=== PATIENT | male | born 1980 | race Caucasian/White ===

== ENCOUNTER 2016-09-09 18:32 | Emergency (ER) | payer OTHER ==
[2016-09-09 18:47] VITALS: BP 124/80; PULSE 86; TEMP 98.6; BMI 29.0
[2016-09-09] MEDS ORDERED: CLINDAMYCIN 600MG PREMIX IVPB 50 ML IVPB ONE (19:28)
[2016-09-09] MEDS ORDERED: OXYCODONE/APAP 5/325MG COMBO TABLET PO ONE (19:28)
[2016-09-09] MEDS ORDERED: CLINDAMYCIN PHOSPHATE 600 MG/4 ML VIAL ONE (19:51)
[2016-09-09] MEDS ORDERED: OXYCODONE/APAP 5/325MG COMBO TABLET ONE (20:05)
--- NOTE | 2016-09-09 20:58 | PDOC ---
History of Present Illness - General Chief Complaint: Bite Stated Complaint: SPIDER BITE Time Seen by Provider: 09/09/16 19:12 History Source: Patient Exam Limitations: No Limitations - History of Present Illness Initial Comments: 09/09/16 20:53 infected wound, right lower leg post ? insect bite ; draining x 4 days Occurred: reports: last week Past History - Past Medical History Allergies/Adverse Reactions: Allergies Allergy/AdvReac Type Severity Reaction Status Date / Time No Known Allergies Allergy Verified 09/09/16 18:41 Home Medications: Ambulatory Orders NK [No Known Home Medication] 03/10/16 Anemia: No Asthma: No Cancer: No Cardiac Disorders: No CVA: No COPD: No CHF: No Dementia: No Diabetes: No GI Disorders: No Disorders: No HTN: No Hypercholesterolemia: No Kidney Stones: No Liver Disease: No Suicide Attempt (Hx): No Seizures: No Thyroid Disease: No Other medical history: O.A, H/O OF DRUG ABUSE ( NOT IV) , CLEAN SINCE 2015 - Surgical History Abdominal Surgery: No Appendectomy: No Cardiac Surgery: No Cholecystectomy: No Lung Surgery: No Neurologic Surgery: No Orthopedic Surgery: No - Reproductive History Testicular Surgery: No - Psycho/Social/Smoking Cessation Hx Anxiety: No Suicidal Ideation: No Smoking History: Current every day smoker Have you smoked in the past 12 months: Yes Number of Cigarettes Smoked Daily: 10 Information on smoking cessation initiated: Yes 'Breaking Loose' booklet given: 09/09/16 Hx Alcohol Use: No Drug/Substance Use Hx: No Substance Use Type: Cocaine, Heroin, Marijuana, Tranquilizers Hx Substance Use Treatment: Yes Review of Systems - Review of Systems Constitutional: No: Chills, Fever, Malaise HEENTM: Yes: Symptoms Reported Respiratory: No: Symptoms reported, Cough Cardiac (ROS): No: Symptoms Reported ABD/GI: No: Symptoms Reported Musculoskeletal: No: Symptoms Reported Integumentary: No: Symptoms Reported Neurological: No: Symptoms reported *Physical Exam - Vital Signs Last Vital Signs Temp Pulse Resp BP Pulse Ox 98.6 F 86 18 124/80 98 09/09/16 18:43 09/09/16 18:43 09/09/16 18:43 09/09/16 18:43 09/09/16 18:43 - Physical Exam General Appearance: Yes: Appropriately Dressed. No: Apparent Distress HEENT: negative: TMs Normal, Pharynx Normal Neck: positive: Supple. negative: Tender, Rigid Respiratory/Chest: positive: Lungs Clear. negative: Normal Breath Sounds Integumentary: positive: Other (1cm circular lesion, draing pus to lateramid shoemaker, right leg with 3 cm) ED Treatment Course - RADIOLOGY Radiology Studies Ordered: Category Date Time Status LEG TIB/FIB-RIGHT [RAD] Stat Radiology 09/09/16 19:12 Completed - Medications Given in the ED: ED Medications Discontinued Medications Generic Name Dose Route Start Last Admin Trade Name Freq PRN Reason Stop Dose Admin Clindamycin Phosphate 50 mls @ 100 mls/hr 09/09/16 19:28 09/09/16 20:13 Cleocin 600 Mg Premix Ivpb - IVPB 09/09/16 19:57 100 mls/hr ONCE ONE Administration Oxycodone/Acetaminophen 1 combo 09/09/16 19:28 09/09/16 20:13 Percocet 5/325 - PO 09/09/16 19:29 1 combo ONCE ONE Administration Medical Decision Making - Medical Decision Making 09/09/16 21:00 attempted to anesthesia post Percocet attempted opening draining wound; pt unable to tolerate and refused further appempts; 1st dose IV clindamycin given in ED; will return for WC in 2 days *DC/Admit/Observation/Transfer Diagnosis at time of Disposition: Abscess of leg, right - Discharge Dispostion Disposition: HOME Condition at time of disposition: Stable Admit: No - Patient Instructions Additional Instructions: Please wound check in ED in 2 days; warm soaks to area 2 times daily
--- NOTE | 2016-09-11 13:11 | PDOC ---
Patient Follow-up (Call Back) - Post ED Follow - Up Chief Complaint: Wound Condition at time of discharge: Stable Disposition at time of original discharge: HOME Reason for Call Back: Abnwl. Microbiology (MRSA) - Disposition Rx Needed: No (pt on clindamycin ) Additional Instructions/Notes: presumptive MRSA pt on clinda
== END 2016-09-09 21:20 | disposition home or self-care (01) ==
LOC: JERFT 18:32
PROC: 0H9LXZZ Drainage of Left Lower Leg Skin, External Approach (ICD-10-PCS; principal; 2016-09-09)
PROC: 3E03329 Introduction of Other Anti-infective into Peripheral Vein, Percutaneous Approach (ICD-10-PCS; 2016-09-09)
DX: L02.415 Cutaneous abscess of right lower limb (principal); T63.301A Toxic effect of unspecified spider venom, accidental (unintentional), initial encounter; Y92.89 Other specified places as the place of occurrence of the external cause
CPT/HCPCS: 10060; 73590-TC-RT; 87070; 87186; 87205; 96365; 99281-25

== ENCOUNTER 2017-04-05 20:34 | Emergency (ER) | payer OTHER ==
[2017-04-05 20:57] VITALS: BP 123/78; PULSE 75; TEMP 98.1; BMI 29.0
[2017-04-05] MEDS ORDERED: AMOX TR/POT CLAV 875MG/125MG TABLETS (FP) PO ONE (21:55)
[2017-04-05] MEDS ORDERED: IBUPROFEN 400 MG TABLET (FP) PO ONE ×2 (21:56→22:12)
--- NOTE | 2017-04-05 21:57 | PDOC ---
History of Present Illness <Donna Grady - Last Filed: 04/05/17 21:56> - General History Source: Patient Exam Limitations: No Limitations - History of Present Illness Initial Comments: 04/05/17 22:07 The patient is a 36 year old male with a significant past medical history of polysubstance abuse (clean since 2015) who presents to the ED with complaints of a toothache since earlier today. The patient reports pain to the maxillary left wisdom tooth. He also present to the ED with a fractured premolar on the mandibular left quadrant. Denies fever or chills. Denies nausea, vomiting, or diarrhea. Denies any other symptoms <Brayan Solis - Last Filed: 04/05/17 22:08> - General Chief Complaint: Toothache Stated Complaint: ABSCESS Time Seen by Provider: 04/05/17 21:31 Past History - Past Medical History Anemia: No Asthma: No Cancer: No Cardiac Disorders: No CVA: No COPD: No CHF: No Dementia: No Diabetes: No GI Disorders: No Disorders: No HTN: No Hypercholesterolemia: No Kidney Stones: No Liver Disease: No Seizures: No Thyroid Disease: No - Surgical History Abdominal Surgery: No Appendectomy: No Cardiac Surgery: No Cholecystectomy: No Lung Surgery: No Neurologic Surgery: No Orthopedic Surgery: No - Reproductive History Testicular Surgery: No - Suicide/Smoking/Psychosocial Hx Smoking History: Current every day smoker Have you smoked in the past 12 months: Yes Number of Cigarettes Smoked Daily: 5 Information on smoking cessation initiated: No 'Breaking Loose' booklet given: 09/09/16 Hx Alcohol Use: No Drug/Substance Use Hx: No Substance Use Type: Cocaine, Heroin, Marijuana, Tranquilizers Hx Substance Use Treatment: Yes <Donna Grady - Last Filed: 04/05/17 21:56> <Brayan Solis - Last Filed: 04/05/17 22:08> - Past Medical History Allergies/Adverse Reactions: Allergies Allergy/AdvReac Type Severity Reaction Status Date / Time No Known Allergies Allergy Verified 09/09/16 18:41 Home Medications: Ambulatory Orders Clindamycin [Cleocin -] 300 mg PO TID #30 capsule 09/09/16 Oxycodone HCl/Acetaminophen [Percocet 5-325 mg Tablet] 1 tab PO Q6H PRN #14 tablet MDD 3 09/09/16 Amox-Tr/K Cl [Augmentin - 875Mg Tablet] 1 tab PO BID #20 tablet 04/05/17 Amox-Tr/K Cl [Augmentin - 875Mg Tablet] 1 tab PO BID #20 tablet 04/05/17 Ibuprofen [Motrin -] 600 mg PO TID PRN #21 tablet 04/05/17 Review of Systems - Review of Systems Able to Perform ROS?: Yes Comments:: 04/05/17 22:07 CONSTITUTIONAL: No reported: Fever, Chills, Diaphoresis, Generalized Weakness, Malaise, Loss of Appetite HEENT: + toothache No reported: Rhinorrhea, Nasal Congestion, Throat Pain, Throat Swelling, Difficulty Swallowing, Mouth Swelling, Ear Pain, Eye Pain, Visual Changes CARDIOVASCULAR: No reported: Chest Pain, Syncope, Palpitations, Irregular Heart Rate, Lightheadedness, Peripheral Edema RESPIRATORY: No reported: Cough, Shortness of Breath, SOB with Exertion, Orthopnea, Wheezing , Stridor, Hemoptysis GASTROINTESTINAL: No reported: Abdominal pain, Abdominal Distension, Nausea, Vomiting, Diarrhea, Constipation, Melena, Hematochezia GENITOURINARY: No reported: Dysuria, Frequency, Urgency, Hesitancy, Flank Pain, Genital Pain MUSCULOSKELETAL: No reported: Myalgia, Arthralgia, Joint Swelling, Back pain, Neck Pain SKIN: No reported: Rash, Itching, Pallor HEMEATOLOGIC/IMMUNOLOGIC: No reported: Easy Bleeding, Easy Bruising, Lymphadenopathy, Frequent infections ENDOCRINE: No reported: Unexplained Weight Gain, Unexplained Weight Loss, Heat Intolerance , Cold Intolerance NEUROLOGIC: No reported: Headache, Focal Weakness, Paresthesias, Vertigo, Lightheadedness, Unsteady Gait, Seizure, Mental Status Changes, Incontinence PSYCHIATRIC: No reported: Anxiety, Depression All Other Systems: Reviewed and Negative <Brayan Solis - Last Filed: 04/05/17 22:08> *Physical Exam - Vital Signs Last Vital Signs Temp Pulse Resp BP Pulse Ox 98.1 F 75 20 123/78 100 04/05/17 20:53 04/05/17 20:53 04/05/17 20:53 04/05/17 20:53 04/05/17 20:53 <Donna Grady - Last Filed: 04/05/17 21:56> - Vital Signs Last Vital Signs Temp Pulse Resp BP Pulse Ox 98.1 F 75 20 123/78 100 04/05/17 20:53 04/05/17 20:53 04/05/17 20:53 04/05/17 20:53 04/05/17 20:53 - Physical Exam Comments: 04/05/17 22:07 GENERAL: Well developed, well nourished. Awake and alert. No acute distress. HEENT:+ fractured premolar on mandibular left quadrant, left maxillary pain. Normocephalic, atraumatic. PERRLA, EOMI. No conjunctival pallor. Sclera are non- icteric. Moist mucous membranes. Oropharynx is clear. NECK: Supple. Full ROM. No JVD. Carotid pulses 2+ and symmetric, without bruits. No thyromegaly. No lymphadenopathy. CARDIOVASCULAR: Regular rate and rhythm. No murmurs, rubs, or gallops. Distal pulses are 2+ and symmetric. PULMONARY: No evidence of respiratory distress. Lungs clear to auscultation bilaterally. No wheezing, rales or rhonchi. ABDOMINAL: Soft. Non-tender. Non-distended. No rebound or guarding. No organomegaly. Normoactive bowel sounds. MUSCULOSKELETAL Normal range of motion at all joints. No bony deformities or tenderness. No CVA tenderness. EXTREMITIES: No cyanosis. No clubbing. No edema. No calf tenderness. SKIN: Warm and dry. Normal capillary refill. No rashes. No jaundice. NEUROLOGICAL: Alert, awake, appropriate. Cranial nerves 2-12 intact. No deficits to light touch and temperature in face, upper extremities and lower extremities. No motor deficits in the in face, upper extremities and lower extremities. Normoreflexic in the upper and lower extremities. Normal speech. Toes are down- going bilaterally. Gait is normal without ataxia. PSYCHIATRIC: Cooperative. Good eye contact. Appropriate mood and affect. <Brayan Solis - Last Filed: 04/05/17 22:08> *DC/Admit/Observation/Transfer <Donna Grady - Last Filed: 04/05/17 21:56> - Attestations Scribe Attestion: 04/05/17 22:07 Documentation prepared by Brayan Solis, acting as medical technologist generalist for Donna Grady MD <Brayan Solis - Last Filed: 04/05/17 22:08> Diagnosis at time of Disposition: Dental caries, Pain, dental - Discharge Dispostion Disposition: HOME Condition at time of disposition: Stable - Prescriptions Prescriptions: Amox-Tr/K Cl [Augmentin - 875Mg Tablet] 1 tab PO BID #20 tablet Amox-Tr/K Cl [Augmentin - 875Mg Tablet] 1 tab PO BID #20 tablet Ibuprofen [Motrin -] 600 mg PO TID PRN #21 tablet PRN Reason: Fever Or Pain - Referrals Referrals: Beverly Hartmann MD [Primary Care Provider] - - Patient Instructions Printed Discharge Instructions: DI for Dental Pain, DI for Tooth Decay Additional Instructions: please 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
[2017-04-05] MEDS ORDERED: AMOX TR/POT CLAV 875MG/125MG TABLETS (FP) ONE (22:12)
== END 2017-04-05 22:16 | disposition home or self-care (01) ==
LOC: JER 20:34 → JERFT 20:34 → JER 22:16
DX: K02.9 Dental caries, unspecified (principal); F17.210 Nicotine dependence, cigarettes, uncomplicated
CPT/HCPCS: 99282-25

== ENCOUNTER 2017-04-06 13:29 | Inpatient (IN) | payer OTHER ==
[2017-04-06 15:03] VITALS: BMI 29.0
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
[2017-04-06] MEDS ORDERED: METHADONE HCL 10 MG TABLET (FOR DETOX USE ONLY) PO ONE ×2 (17:52→23:00)
[2017-04-06] MEDS ORDERED: IBUPROFEN 400 MG TABLET (FP) PO PRN (17:52)
[2017-04-06] MEDS ORDERED: ACETAMINOPHEN 325 MG TABLET (FP) PO PRN (17:52)
[2017-04-06] MEDS ORDERED: P-EPHED 60MG/TRIPROLIDI 2.5MG TABLET PO PRN (17:52)
[2017-04-06] MEDS ORDERED: MENTHOL/PHENOL 1 EACH UD MM PRN (17:52)
[2017-04-06] MEDS ORDERED: diazePAM 5 MG TABLET PO ONE (17:52)
[2017-04-06] MEDS ORDERED: NICOTINE POLACRILEX 2 MG GUM BC PRN (17:52)
[2017-04-06] MEDS ORDERED: diphenhydrAMINE HCL 50 MG CAPSULE PO PRN (17:52)
[2017-04-06] MEDS ORDERED: guaiFENesin/D-METHORPHAN HB 10 ML UNIT-DOSE CUPS PO PRN (17:52)
[2017-04-06] MEDS ORDERED: MAGNESIUM HYDROX 2400MG/30ML ORAL SUSPENSION 30 ML CUP PO PRN (17:52)
[2017-04-06] MEDS ORDERED: MAG HYDROX/AL HYDROX/SIMETH 30 ML UNIT-DOSE CUP PO PRN (17:52)
[2017-04-06] MEDS ORDERED: LOPERAMIDE HCL 2 MG CAPSULE PO PRN (17:52)
[2017-04-06] MEDS ORDERED: MAGNESIUM CITRATE 300 ML BOTTLE PO PRN (17:52)
[2017-04-06 22:07] LABS: URINE APPEARANCE CLOUDY; URINE BILIRUBIN NEGATIVE (NEGATIVE); URINE BLOOD NEGATIVE (NEGATIVE); URINE COLOR AMBER; URINE GLUCOSE (UA) NEGATIVE (NEGATIVE); URINE KETONE NEGATIVE (NEGATIVE); URINE NITRITE NEGATIVE (NEGATIVE); URINE UROBILINOGEN NEGATIVE mg/dL (0.2-1.0)
[2017-04-06 22:11] LABS: URINE PROTEIN 1+ (NEGATIVE)
[2017-04-06] MEDS: THIAMINE HCL 100 MG TABLET (FP) PO SCH (22:11)
[2017-04-06] MEDS: diazePAM 5 MG TABLET PO SCH (22:13)
[2017-04-06 22:16] LABS: URINE MUCUS MODERATE; URINE RBC 3 /hpf (0-3); URINE WBC 3 /hpf (3-5)
[2017-04-07] MEDS: diazePAM 5 MG TABLET PO SCH ×3 (06:13→22:06)
[2017-04-07] MEDS ORDERED: METHADONE HCL 10 MG TABLET (FOR DETOX USE ONLY) PO SCH (10:00)
[2017-04-07 10:03] LABS: MCH 29.1 pg (25.7-33.7); MCHC 33.1 g/dl (32.0-35.9); MEAN PLT VOLUME 8.3 fl (7.5-11.1); PLATELET COUNT 371 K/MM3 (134-434); RDW 13.6 % (11.9-15.9); WHITE BLOOD COUNT 8.5 K/mm3 (4.0-10.0)
[2017-04-07 10:28] LABS: ALBUMIN 3.4 g/dl (3.4-5.0); ALK PHOS 108 U/L (45-117); ANION GAP 10 (8-16); BILIRUBIN,TOTAL 0.4 mg/dL (0.2-1.0); CALCIUM 9.1 mg/dL (8.5-10.1); CO2 28 mmol/L (21-32); GLUCOSE,RANDOM 92 mg/dL (74-106); SGOT/AST 14 U/L (15-37); SGPT/ALT 17 U/L (12-78); TOT PROT 7.1 g/dl (6.4-8.2)
[2017-04-07] MEDS: NICOTINE 14 MG/24 HOURS TOPICAL PATCH TD SCH (10:31)
[2017-04-07] MEDS: PRENATAL VITAMINS W/ FOLIC ACID TABLET (FP) PO SCH (10:31)
[2017-04-07 11:13] LABS: URINE LEUK ESTERASE Negative (NEGATIVE)
--- NOTE | 2017-04-07 12:05 | PN ---
[facility] CIWA - CIWA Score Nausea/Vomitin-No Nausea/No Vomiting Muscle Tremors: 4-Moderate,w/Arms Extend Anxiety: 4-Mod. Anxious/Guarded Agitation: 1-Slight > Activity Paroxysmal Sweats: 3 Orientation: 0-Oriented Tacttile Disturbances: 0-None Auditory Disturbances: 2-Mild Harshness/Frighten Visual Disturbances: 2-Mild Sensitivity Headache: 0-None Present CIWA-Ar Total Score: 16 S COWS - Scale Resting Pulse: 0= [place] 80 or Below Sweatin= Chills/Flushing Restless Observation: 1= Difficult to Sit Still Pupil Size: 0= Normal to Room Light Bone or Joint Aches: 1= Mild Discomfort Runny Nose/ Eye Tearin= Runny Nose/Eyes GI Upset > 30mins: 1= Stomach Cramp Tremor Observation of Outstretched Hands: 2= Slight Tremor Visible Yawning Observation: 1= 1-2x During Session Anxiety or Irritability: 2=Irritable/Anxious Goose Flesh Skin: 3=Piloerection COWS Score: 14 [facility] Progress Note (SOAP) Subjective: Fatigue, Tremors, Body Aches. Objective: PT. A & O X 3. NO ACUTE DISTRESS. 04/07/17 12:03 Vital Signs Temperature 96.1 F L 04/07/17 09:42 Pulse Rate 71 04/07/17 09:42 Respiratory Rate 18 04/07/17 09:42 Blood Pressure 142/99 04/07/17 09:42 O2 Sat by Pulse Oximetry (%) Laboratory Tests 04/06/17 04/07/17 04/07/17 21:56 07:00 07:00 WBC 8.5 D RBC 4.63 Hgb 13.5 Hct 40.8 MCV 88.0 MCH 29.1 MCHC 33.1 RDW 13.6 Plt Count 371 D MPV 8.3 Sodium 141 Potassium 3.9 Chloride 103 Carbon Dioxide 28 Anion Gap 10 BUN 8 D Creatinine 1.0 Creat Clearance w eGFR > 60 Random Glucose 92 Calcium 9.1 Total Bilirubin 0.4 D AST 14 L D ALT 17 Alkaline Phosphatase 108 Total Protein 7.1 Albumin 3.4 Urine Color Ashley Urine Appearance Cloudy Urine pH 5.0 Urine Protein 1+ H Urine Glucose (UA) Negative Urine Ketones Negative Urine Blood Negative Urine Nitrite Negative Urine Bilirubin Negative Urine Urobilinogen Negative Urine RBC 3 Urine WBC 3 Ur Epithelial Cells Rare Urine Mucus Moderate LABS NOTED. HCV AB AND RPR RESULTS PENDING. 04/07/17 12:04 Assessment: 04/07/17 12:04 WITHDRAWAL SYMPTOMS. Plan: CONTINUE DETOX.
--- NOTE | 2017-04-07 17:19 | CONSULT ---
[facility] Psychiatric Consult - Data Date of interview: 04/07/17 Admission source: [facility] Identifying data: Another admission to [facility] for this 36 y/o AA male seeking detox treatment on for heroin,cocaine,xanax and cannabis dependence.Patient is single without children,domiciled,unemployed and supported on welfare. Substance Abuse History: Confirmed by patient in this interview.Smoking history : Current every day smoker. Have you smoked in the past 12 months: Yes. Aproximately how many cigarettes per day: 10. Cigars Per Day: 0. Hx Chewing Tobacco Use: No. Initiated information on smoking cessation: Yes. 'Breaking Loose' booklet given: 04/06/17. - Substance & Tx. History. Hx Alcohol Use: No. Hx Substance Use: Yes. Substance Use Type: Cocaine, Marijuana, Opiates, Tranquilizers. Hx Substance Use Treatment: Yes (02/2016 [facility]). - Substances Abused. Heroin. Route: Inhalation. Frequency: Daily. Amount used: 10 bags. Age of first use: 33. Date of Last Use: 04/06/17. Alprazolam (Xanax). Route: Oral. Frequency: Daily. Amount used: 4 mg. Age of first use: 35. Date of Last Use: 04/05/17 Medical History: History of positive PPD and dental problems. Psychiatric History: Patient denies. Physical/Sexual Abuse/Trauma History: Patient denies. Additional Comment: Urine Drug Screen Results: THC-Marijuana, MAJOR-Cocaine, OPI- Opiates, PCP-Phencyclidine, BZO-Benzodiazepines.Noted. Mental Status Exam - Mental Status Exam Alert and Oriented to: Time, Place, Person Cognitive Function: Good Patient Appearance: Well Groomed Mood: Withdrawn, Hopeful, Euthymic Affect: Appropriate, Normal Range Patient Behavior: Fatigued, Cooperative Speech Pattern: Clear Voice Loudness: Normal Thought Process: Intact, Goal Oriented Thought Disorder: Not Present Hallucinations: Denies Suicidal Ideation: Denies Homicidal Ideation: Denies Insight/Judgement: Poor Sleep: Well Appetite: Good Muscle strength/Tone: Normal Gait/Station: Normal Psychiatric Findings - Problem List ([place] 1, 2,3) (1) Opioid dependence with withdrawal Current Visit: Yes Status: Acute (2) Sedative, hypnotic or anxiolytic dependence with withdrawal, uncomplicated Current Visit: Yes Status: Acute (3) Cannabis dependence, uncomplicated Current Visit: Yes Status: Acute (4) Cocaine dependence Current Visit: Yes Status: Acute (5) Nicotine dependence Current Visit: Yes Status: Acute Qualifiers: Nicotine product type: cigarettes Substance use status: in withdrawal Qualified Code(s): F17.213 - Nicotine dependence, cigarettes, with withdrawal; F17.213 - Nicotine dependence, cigarettes, with withdrawal Comment: counseled cessation - using chantix with success - Initial Treatment Plan Initial Treatment Plan: Psychoeducation.Detoxification.Observation.
[2017-04-07] MEDS: diazePAM 5 MG TABLET PO PRN (18:18)
--- NOTE | 2017-04-07 20:29 | EKG ---
Test Reason : Blood Pressure : / mmHG Vent. Rate : 063 BPM Atrial Rate : 063 BPM P-R Int : 144 ms QRS Dur : 094 ms QT Int : 412 ms P-R-T Axes : 033 -19 031 degrees QTc Int : 421 ms NORMAL SINUS RHYTHM RSR' NO PREVIOUS ECGS AVAILABLE REPEAT EKG IF CLINICALLY INDICATED Confirmed by VIANNEY LYN MD ([id number]) on 04/07/2017 8:28:59 PM Referred By: Confirmed By:VIANNEY LYN MD
[2017-04-07] MEDS: THIAMINE HCL 100 MG TABLET (FP) PO SCH (22:06)
[2017-04-08] MEDS: diazePAM 5 MG TABLET PO PRN ×2 (05:57→12:29)
[2017-04-08 09:51] VITALS: BP 134/83; PULSE 68; TEMP 97.5
[2017-04-08] MEDS ORDERED: METHADONE HCL 5 MG TABLET (FOR DETOX USE ONLY) PO SCH (10:00)
[2017-04-08] MEDS ORDERED: diazePAM 5 MG TABLET PO SCH (10:00)
[2017-04-08] MEDS: PRENATAL VITAMINS W/ FOLIC ACID TABLET (FP) PO SCH (10:49)
[2017-04-08] MEDS: NICOTINE 14 MG/24 HOURS TOPICAL PATCH TD SCH (10:49)
--- NOTE | 2017-04-08 10:59 | PN ---
S CIWA - CIWA Score Nausea/Vomitin-No Nausea/No Vomiting Muscle Tremors: 4-Moderate,w/Arms Extend Anxiety: 4-Mod. Anxious/Guarded Agitation: 4-Moderately Restless Paroxysmal Sweats: 1-Minimal Palms Moist Orientation: 0-Oriented Tacttile Disturbances: 3-Moderate Itch/Numb/Burn Auditory Disturbances: 0-None Visual Disturbances: 0-None Headache: 0-None Present CIWA-Ar Total Score: 16 BHS COWS - Scale Resting Pulse: 0= [place] 80 or Below Sweatin= Chills/Flushing Restless Observation: 3= Extraneous Movement Pupil Size: 2= Moderately Dilated Bone or Joint Aches: 4=Acute Joint/Muscle Pain Runny Nose/ Eye Tearin= None GI Upset > 30mins: 1= Stomach Cramp Tremor Observation of Outstretched Hands: 2= Slight Tremor Visible Yawning Observation: 2= >3x During Session Anxiety or Irritability: 2=Irritable/Anxious Goose Flesh Skin: 0=Smooth Skin COWS Score: 17 S Progress Note (SOAP) Subjective: ANXIETY,SWEATS,TREMORS,FATIGUE. Objective: 04/08/17 10:59 Vital Signs Temperature 97.5 F L 04/08/17 09:50 Pulse Rate 68 04/08/17 09:50 Respiratory Rate 18 04/08/17 09:50 Blood Pressure 134/83 04/08/17 09:50 O2 Sat by Pulse Oximetry (%) Laboratory Last Values WBC 8.5 K/mm3 (4.0-10.0) D 04/07/17 07:00 RBC 4.63 M/mm3 (4.00-5.60) 04/07/17 07:00 Hgb 13.5 GM/dL (11.7-16.9) 04/07/17 07:00 Hct 40.8 % (35.4-49) 04/07/17 07:00 MCV 88.0 fl (80-96) 04/07/17 07:00 MCH 29.1 pg (25.7-33.7) 04/07/17 07:00 MCHC 33.1 g/dl (32.0-35.9) 04/07/17 07:00 RDW 13.6 % (11.9-15.9) 04/07/17 07:00 Plt Count 371 K/MM3 (134-434) D 04/07/17 07:00 MPV 8.3 fl (7.5-11.1) 04/07/17 07:00 Sodium 141 mmol/L (136-145) 04/07/17 07:00 Potassium 3.9 mmol/L (3.5-5.1) 04/07/17 07:00 Chloride 103 mmol/L (98-107) 04/07/17 07:00 Carbon Dioxide 28 mmol/L (21-32) 04/07/17 07:00 Anion Gap 10 (8-16) 04/07/17 07:00 BUN 8 mg/dL (7-18) D 04/07/17 07:00 Creatinine 1.0 mg/dL (0.7-1.3) 04/07/17 07:00 Creat Clearance w eGFR > 60 (>60) 04/07/17 07:00 Random Glucose 92 mg/dL (74-106) 04/07/17 07:00 Calcium 9.1 mg/dL (8.5-10.1) 04/07/17 07:00 Total Bilirubin 0.4 mg/dL (0.2-1.0) D 04/07/17 07:00 AST 14 U/L (15-37) L D 04/07/17 07:00 ALT 17 U/L (12-78) 04/07/17 07:00 Alkaline Phosphatase 108 U/L (45-117) 04/07/17 07:00 Total Protein 7.1 g/dl (6.4-8.2) 04/07/17 07:00 Albumin 3.4 g/dl (3.4-5.0) 04/07/17 07:00 Urine Color [place] 04/06/17 21:56 Urine Appearance Cloudy 04/06/17 21:56 Urine pH 5.0 (5.0-8.0) 04/06/17 21:56 Ur Specific [place] 1.020 (1.005-1.025) 04/06/17 21:56 Urine Protein 1+ (NEGATIVE) H 04/06/17 21:56 Urine Glucose (UA) Negative (NEGATIVE) 04/06/17 21:56 Urine Ketones Negative (NEGATIVE) 04/06/17 21:56 Urine Blood Negative (NEGATIVE) 04/06/17 21:56 Urine Nitrite Negative (NEGATIVE) 04/06/17 21:56 Urine Bilirubin Negative (NEGATIVE) 04/06/17 21:56 Urine Urobilinogen Negative mg/dL (0.2-1.0) 04/06/17 21:56 Ur Leukocyte Esterase Negative (NEGATIVE) 04/06/17 21:56 Urine RBC 3 /hpf (0-3) 04/06/17 21:56 Urine WBC 3 /hpf (3-5) 04/06/17 21:56 Ur Epithelial Cells Rare /hpf (FEW) 04/06/17 21:56 Urine Mucus Moderate 04/06/17 21:56 RPR Titer Nonreactive (NONREACTIVE) 04/07/17 07:00 Hepatitis C Antibody <0.1 s/co ratio (0.0-0.9) 04/06/17 07:00 Assessment: 04/08/17 10:59 WITHDRAWAL SX Plan: CONTINUE DETOX
--- NOTE | 2017-04-08 13:15 | DS ---
[facility] Detox Discharge Summary Admission Date: 04/06/17 Discharge Date: 04/08/17 - History Present History: Opioid Dependence Additional Comments: PT DECLINED TO COMPLETE DETOX TX FOR PERSONAL REASONS NOT DISCLOSED. ALERT O X 3. NAD. Pertinent Past History: S/P DENTAL DISEASE HX VITAMIN D DIFFICIENCY HX HIP PAIN - Physical Exam Results Vital Signs: Vital Signs Temperature 97.5 F L 04/08/17 09:50 Pulse Rate 68 04/08/17 09:50 Respiratory Rate 18 04/08/17 09:50 Blood Pressure 134/83 04/08/17 09:50 O2 Sat by Pulse Oximetry (%) Pertinent Admission Physical Exam Findings: WITHDRAWAL SX Laboratory Last Values WBC 8.5 K/mm3 (4.0-10.0) D 04/07/17 07:00 RBC 4.63 M/mm3 (4.00-5.60) 04/07/17 07:00 Hgb 13.5 GM/dL (11.7-16.9) 04/07/17 07:00 Hct 40.8 % (35.4-49) 04/07/17 07:00 MCV 88.0 fl (80-96) 04/07/17 07:00 MCH 29.1 pg (25.7-33.7) 04/07/17 07:00 MCHC 33.1 g/dl (32.0-35.9) 04/07/17 07:00 RDW 13.6 % (11.9-15.9) 04/07/17 07:00 Plt Count 371 K/MM3 (134-434) D 04/07/17 07:00 MPV 8.3 fl (7.5-11.1) 04/07/17 07:00 Sodium 141 mmol/L (136-145) 04/07/17 07:00 Potassium 3.9 mmol/L (3.5-5.1) 04/07/17 07:00 Chloride 103 mmol/L (98-107) 04/07/17 07:00 Carbon Dioxide 28 mmol/L (21-32) 04/07/17 07:00 Anion Gap 10 (8-16) 04/07/17 07:00 BUN 8 mg/dL (7-18) D 04/07/17 07:00 Creatinine 1.0 mg/dL (0.7-1.3) 04/07/17 07:00 Creat Clearance w eGFR > 60 (>60) 04/07/17 07:00 Random Glucose 92 mg/dL (74-106) 04/07/17 07:00 Calcium 9.1 mg/dL (8.5-10.1) 04/07/17 07:00 Total Bilirubin 0.4 mg/dL (0.2-1.0) D 04/07/17 07:00 AST 14 U/L (15-37) L D 04/07/17 07:00 ALT 17 U/L (12-78) 04/07/17 07:00 Alkaline Phosphatase 108 U/L (45-117) 04/07/17 07:00 Total Protein 7.1 g/dl (6.4-8.2) 04/07/17 07:00 Albumin 3.4 g/dl (3.4-5.0) 04/07/17 07:00 Urine Color [place] 04/06/17 21:56 Urine Appearance Cloudy 04/06/17 21:56 Urine pH 5.0 (5.0-8.0) 04/06/17 21:56 Ur Specific [place] 1.020 (1.005-1.025) 04/06/17 21:56 Urine Protein 1+ (NEGATIVE) H 04/06/17 21:56 Urine Glucose (UA) Negative (NEGATIVE) 04/06/17 21:56 Urine Ketones Negative (NEGATIVE) 04/06/17 21:56 Urine Blood Negative (NEGATIVE) 04/06/17 21:56 Urine Nitrite Negative (NEGATIVE) 04/06/17 21:56 Urine Bilirubin Negative (NEGATIVE) 04/06/17 21:56 Urine Urobilinogen Negative mg/dL (0.2-1.0) 04/06/17 21:56 Ur Leukocyte Esterase Negative (NEGATIVE) 04/06/17 21:56 Urine RBC 3 /hpf (0-3) 04/06/17 21:56 Urine WBC 3 /hpf (3-5) 04/06/17 21:56 Ur Epithelial Cells Rare /hpf (FEW) 04/06/17 21:56 Urine Mucus Moderate 04/06/17 21:56 RPR Titer Nonreactive (NONREACTIVE) 04/07/17 07:00 Hepatitis C Antibody <0.1 s/co ratio (0.0-0.9) 04/06/17 07:00 - Treatment Hospital Course: Discharged Condition Good - Medication Discharge Medications: Ambulatory Orders NK [No Known Home Medication] 04/06/17 - Diagnosis (1) Cannabis dependence, uncomplicated Status: Acute (2) Cocaine dependence Status: Acute Qualifiers: Substance use status: uncomplicated Qualified Code(s): F14.20 - Cocaine dependence, uncomplicated; F14.20 - Cocaine dependence, uncomplicated; F14.20 - Cocaine dependence, uncomplicated (3) Nicotine dependence Status: Acute Qualifiers: Nicotine product type: cigarettes Substance use status: in withdrawal Qualified Code(s): F17.213 - Nicotine dependence, cigarettes, with withdrawal; F17.213 - Nicotine dependence, cigarettes, with withdrawal (4) Opioid dependence with withdrawal Status: Acute (5) Sedative, hypnotic or anxiolytic dependence with withdrawal, uncomplicated Status: Acute - AMA Did Patient Leave Against Medical Advice: Yes (AMA)
[2017-04-10] MEDS ORDERED: METHADONE HCL 10 MG TABLET (FOR DETOX USE ONLY) PO SCH (10:00)
[2017-04-10] MEDS ORDERED: diazePAM 5 MG TABLET PO SCH (10:00)
[2017-04-11] MEDS ORDERED: METHADONE HCL 5 MG TABLET (FOR DETOX USE ONLY) PO SCH (06:00)
== END 2017-04-08 13:24 | disposition left against medical advice (07) | DRG 770 ==
LOC: YASAS 13:29 → Y3N 18:58
PROVIDERS: ADMIT Internal Medicine; ATTEND Internal Medicine
PROC: HZ2ZZZZ Detoxification Services for Substance Abuse Treatment (ICD-10-PCS; principal; 2017-04-06)
DX: F11.23 Opioid dependence with withdrawal (principal); F13.230 Sedative, hypnotic or anxiolytic dependence with withdrawal, uncomplicated; F14.20 Cocaine dependence, uncomplicated; F12.20 Cannabis dependence, uncomplicated; F17.213 Nicotine dependence, cigarettes, with withdrawal; F41.8 Other specified anxiety disorders; R76.11 Nonspecific reaction to tuberculin skin test without active tuberculosis
CPT/HCPCS: 36415; 71020-TC; 80053; 81003; 81015; 85027; 86593; 86803; 93005; 93010

== ENCOUNTER 2017-06-01 19:29 | Inpatient (IN) | payer OTHER ==
[2017-06-01 19:43] VITALS: BMI 28.1
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
[2017-06-01] MEDS ORDERED: LOPERAMIDE HCL 2 MG CAPSULE PO PRN (19:56)
[2017-06-01] MEDS ORDERED: MAGNESIUM CITRATE 300 ML BOTTLE PO PRN (19:56)
[2017-06-01] MEDS ORDERED: MENTHOL/PHENOL 1 EACH UD MM PRN (19:56)
[2017-06-01] MEDS ORDERED: guaiFENesin/D-METHORPHAN HB 10 ML UNIT-DOSE CUPS PO PRN (19:56)
[2017-06-01] MEDS ORDERED: chlordiazePOXIDE HCL 25 MG CAPSULE PO PRN (19:56)
[2017-06-01] MEDS ORDERED: NICOTINE POLACRILEX 2 MG GUM BC PRN (19:56)
[2017-06-01] MEDS ORDERED: P-EPHED 60MG/TRIPROLIDI 2.5MG TABLET PO PRN (19:56)
[2017-06-01] MEDS ORDERED: MAG HYDROX/AL HYDROX/SIMETH 30 ML UNIT-DOSE CUP PO PRN (19:56)
[2017-06-01] MEDS ORDERED: ACETAMINOPHEN 325 MG TABLET (FP) PO PRN (19:56)
[2017-06-01] MEDS ORDERED: IBUPROFEN 400 MG TABLET (FP) PO PRN (19:56)
[2017-06-01] MEDS ORDERED: MAGNESIUM HYDROX 2400MG/30ML ORAL SUSPENSION 30 ML CUP PO PRN (19:56)
[2017-06-01] MEDS ORDERED: METHADONE HCL 10 MG TABLET (FOR DETOX USE ONLY) PO ONE ×2 (19:56→23:00)
[2017-06-01 23:22] LABS: URINE APPEARANCE CLEAR; URINE BILIRUBIN NEGATIVE (NEGATIVE); URINE BLOOD NEGATIVE (NEGATIVE); URINE COLOR YELLOW; URINE GLUCOSE (UA) NEGATIVE (NEGATIVE); URINE KETONE NEGATIVE (NEGATIVE); URINE LEUK ESTERASE NEGATIVE (NEGATIVE); URINE NITRITE NEGATIVE (NEGATIVE); URINE PROTEIN NEGATIVE (NEGATIVE); URINE UROBILINOGEN NEGATIVE mg/dL (0.2-1.0)
[2017-06-01] MEDS ORDERED: METHADONE HCL 10 MG TABLET (FOR DETOX USE ONLY) ONE (23:46)
[2017-06-01] MEDS: chlordiazePOXIDE HCL 25 MG CAPSULE PO SCH (23:51)
[2017-06-01] MEDS: THIAMINE HCL 100 MG TABLET (FP) PO SCH (23:51)
[2017-06-01] MEDS: MINERAL OIL/PETROLAT/WATER TOPICAL CREAM 113 GM JAR TP SCH (23:52)
[2017-06-02] MEDS: chlordiazePOXIDE HCL 25 MG CAPSULE PO SCH ×4 (06:04→22:20)
[2017-06-02] MEDS ORDERED: METHADONE HCL 10 MG TABLET (FOR DETOX USE ONLY) PO SCH (10:00)
[2017-06-02] MEDS: NICOTINE 14 MG/24 HOURS TOPICAL PATCH TD SCH (10:10)
[2017-06-02] MEDS: PRENATAL VITAMINS W/ FOLIC ACID TABLET (FP) PO SCH (10:10)
[2017-06-02 10:12] LABS: MCH 28.7 pg (25.7-33.7); MCHC 32.4 g/dl (32.0-35.9); MEAN CELL VOLUME 88.6 fl (80-96); MEAN PLT VOLUME 8.7 fl (7.5-11.1); PLATELET COUNT 292 K/MM3 (134-434); RDW 14.2 % (11.9-15.9); WHITE BLOOD COUNT 8.7 K/mm3 (4.0-10.0)
[2017-06-02 10:56] LABS: ALBUMIN 3.4 g/dl (3.4-5.0); ALK PHOS 101 U/L (45-117); ANION GAP 7 (8-16); BILIRUBIN,TOTAL 0.5 mg/dL (0.2-1.0); CALCIUM 9.2 mg/dL (8.5-10.1); CO2 30 mmol/L (21-32); CREATININE 1.2 mg/dL (0.7-1.3); GLUCOSE,RANDOM 71 mg/dL (74-106); SGOT/AST 13 U/L (15-37); SGPT/ALT 17 U/L (12-78); TOT PROT 6.6 g/dl (6.4-8.2)
[2017-06-02 11:20] LABS: URINE LEUK ESTERASE Negative (NEGATIVE)
--- NOTE | 2017-06-02 11:25 | PN ---
[facility] CIWA - CIWA Score Nausea/Vomitin-No Nausea/No Vomiting Muscle Tremors: 4-Moderate,w/Arms Extend Anxiety: 3 Agitation: 2 Paroxysmal Sweats: No Perspiration Orientation: 0-Oriented Tacttile Disturbances: 2-Mild Itch/Numbness/Burn Auditory Disturbances: 2-Mild Harshness/Frighten Visual Disturbances: 2-Mild Sensitivity Headache: 0-None Present CIWA-Ar Total Score: 15 BHS COWS - Scale Resting Pulse: 0= [place] 80 or Below Sweatin= Chills/Flushing Restless Observation: 1= Difficult to Sit Still Pupil Size: 0= Normal to Room Light Bone or Joint Aches: 2= Severe Diffuse Aches Runny Nose/ Eye Tearin= None GI Upset > 30mins: 2= Nausea/Diarrhea Tremor Observation of Outstretched Hands: 2= Slight Tremor Visible Yawning Observation: 1= 1-2x During Session Anxiety or Irritability: 2=Irritable/Anxious Goose Flesh Skin: 3=Piloerection COWS Score: 14 S Progress Note (SOAP) Subjective: Diarrhea, Tremors, Body Aches, Fatigue. Objective: PT. A & O X 3, OBSERVED AMBULATING ON UNIT. NO ACUTE DISTRESS. 06/02/17 11:24 Vital Signs Temperature 98.5 F 06/02/17 09:05 Pulse Rate 55 L 06/02/17 09:05 Respiratory Rate 18 06/02/17 09:05 Blood Pressure 126/82 06/02/17 09:05 O2 Sat by Pulse Oximetry (%) Laboratory Tests 06/01/17 06/02/17 06/02/17 23:10 07:00 07:00 WBC 8.7 RBC 4.48 Hgb 12.9 Hct 39.7 MCV 88.6 MCH 28.7 MCHC 32.4 RDW 14.2 Plt Count 292 D MPV 8.7 Sodium 141 Potassium 4.3 Chloride 104 Carbon Dioxide 30 Anion Gap 7 L BUN 16 D Creatinine 1.2 Creat Clearance w eGFR > 60 Random Glucose 71 L D Calcium 9.2 Total Bilirubin 0.5 D AST 13 L ALT 17 Alkaline Phosphatase 101 Total Protein 6.6 Albumin 3.4 Urine Color Yellow Urine Appearance Clear Urine pH 6.0 Ur Specific [place] 1.018 Urine Protein Negative Urine Glucose (UA) Negative Urine Ketones Negative Urine Blood Negative Urine Nitrite Negative Urine Bilirubin Negative Urine Urobilinogen Negative Ur Leukocyte Esterase Negative LABS NOTED. RPR RESULT PENDING. 06/02/17 11:24 Assessment: 06/02/17 11:24 WITHDRAWAL SYMPTOMS. Plan: CONTINUE DETOX. INCREASE DAILY PO FLUID INTAKE.
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
--- NOTE | 2017-06-02 19:06 | EKG ---
Test Reason : Blood Pressure : / mmHG Vent. Rate : 072 BPM Atrial Rate : 072 BPM P-R Int : 172 ms QRS Dur : 090 ms QT Int : 410 ms P-R-T Axes : 073 -01 030 degrees QTc Int : 448 ms NORMAL SINUS RHYTHM NORMAL ECG WHEN COMPARED WITH ECG OF 06-APR-2017 20:31, NO SIGNIFICANT CHANGE WAS FOUND Confirmed by MD KARINA, EMELINA ([id number]) on 06/02/2017 7:05:43 PM Referred By: Confirmed By:EMELINA COLLINS MD
[2017-06-02] MEDS: THIAMINE HCL 100 MG TABLET (FP) PO SCH (22:20)
[2017-06-02] MEDS: MINERAL OIL/PETROLAT/WATER TOPICAL CREAM 113 GM JAR TP SCH (22:20)
[2017-06-03 06:00] VITALS: TEMP 96.9
[2017-06-03] MEDS: chlordiazePOXIDE HCL 25 MG CAPSULE PO SCH ×2 (06:34→10:26)
[2017-06-03 09:13] VITALS: BP 120/80; PULSE 73
[2017-06-03] MEDS ORDERED: METHADONE HCL 5 MG TABLET (FOR DETOX USE ONLY) PO SCH (10:00)
[2017-06-03] MEDS: NICOTINE 14 MG/24 HOURS TOPICAL PATCH TD SCH (10:26)
[2017-06-03] MEDS: PRENATAL VITAMINS W/ FOLIC ACID TABLET (FP) PO SCH (10:26)
--- NOTE | 2017-06-03 11:02 | PN ---
[facility] CIWA - CIWA Score Nausea/Vomitin-No Nausea/No Vomiting Muscle Tremors: 4-Moderate,w/Arms Extend Anxiety: 3 Agitation: 3 Paroxysmal Sweats: No Perspiration Orientation: 2-Disoriented Date<2 days Tacttile Disturbances: 2-Mild Itch/Numbness/Burn Auditory Disturbances: 0-None Visual Disturbances: 2-Mild Sensitivity Headache: 0-None Present CIWA-Ar Total Score: 16 BHS COWS - Scale Resting Pulse: 0= [place] 80 or Below Sweatin= No chills or Flushing Restless Observation: 1= Difficult to Sit Still Pupil Size: 0= Normal to Room Light Bone or Joint Aches: 2= Severe Diffuse Aches Runny Nose/ Eye Tearin= None GI Upset > 30mins: 1= Stomach Cramp Tremor Observation of Outstretched Hands: 2= Slight Tremor Visible Yawning Observation: 1= 1-2x During Session Anxiety or Irritability: 2=Irritable/Anxious Goose Flesh Skin: 3=Piloerection COWS Score: 12 S Progress Note (SOAP) Subjective: Tremors, Body Aches, Fatigue. Objective: PT. A & O X 2 (UNCERTAIN ABOUT DAY / DATE).PT. OBSERVED AMBULATING ON UNIT. NO ACUTE DISTRESS. 06/03/17 11:03 Vital Signs Temperature 96.9 F L 06/03/17 09:12 Pulse Rate 73 06/03/17 09:12 Respiratory Rate 18 06/03/17 09:12 Blood Pressure 120/80 06/03/17 09:12 O2 Sat by Pulse Oximetry (%) Laboratory Tests 06/01/17 06/02/17 06/02/17 23:10 07:00 07:00 WBC 8.7 RBC 4.48 Hgb 12.9 Hct 39.7 MCV 88.6 MCH 28.7 MCHC 32.4 RDW 14.2 Plt Count 292 D MPV 8.7 Sodium 141 Potassium 4.3 Chloride 104 Carbon Dioxide 30 Anion Gap 7 L BUN 16 D Creatinine 1.2 Creat Clearance w eGFR > 60 Random Glucose 71 L D Calcium 9.2 Total Bilirubin 0.5 D AST 13 L ALT 17 Alkaline Phosphatase 101 Total Protein 6.6 Albumin 3.4 Urine Color Yellow Urine Appearance Clear Urine pH 6.0 Ur Specific [place] 1.018 Urine Protein Negative Urine Glucose (UA) Negative Urine Ketones Negative Urine Blood Negative Urine Nitrite Negative Urine Bilirubin Negative Urine Urobilinogen Negative Ur Leukocyte Esterase Negative RPR Titer 06/02/17 07:00 WBC RBC Hgb Hct MCV MCH MCHC RDW Plt Count MPV Sodium Potassium Chloride Carbon Dioxide Anion Gap BUN Creatinine Creat Clearance w eGFR Random Glucose Calcium Total Bilirubin AST ALT Alkaline Phosphatase Total Protein Albumin Urine Color Urine Appearance Urine pH Ur Specific [place] Urine Protein Urine Glucose (UA) Urine Ketones Urine Blood Urine Nitrite Urine Bilirubin Urine Urobilinogen Ur Leukocyte Esterase RPR Titer Nonreactive LABS NOTED. Assessment: 06/03/17 11:03 WITHDRAWAL SYMPTOMS. Plan: CONTINUE DETOX.
--- NOTE | 2017-06-03 13:33 | DS ---
[facility] Detox Discharge Summary Admission Date: 06/01/17 Discharge Date: 06/03/17 - History Present History: Alcohol Dependence, Opioid Dependence Additional Comments: PATIENT HAS PERSONAL MATTER TO ATTEND TO AND DOES NOT WISH TO STAY TO COMPLETE DETOX REGIMEN. RISKS OF LEAVING DETOX UNIT PRIOR TO COMPLETION OF DETOX REGIMEN EXPLAINED TO PATIENT. PATIENT ADVISED TO GO IMMEDIATELY TO NEAREST ER SHOULD ANY INTOLERABLE DETOX SYMPTOMS DEVELOP AT ANY TIME. PATIENT LEFT DETOX UNIT IN STABLE MEDICAL CONDITION. Pertinent Past History: Degenerative Arthritis of Left Hip, Dry Skin Dermatitis, Nicotine Dependence, Bipolar Disorder, History of Positive PPD (Treated). - Physical Exam Results Vital Signs: Vital Signs Temperature 96.9 F L 06/03/17 09:12 Pulse Rate 73 06/03/17 09:12 Respiratory Rate 18 06/03/17 09:12 Blood Pressure 120/80 06/03/17 09:12 O2 Sat by Pulse Oximetry (%) Pertinent Admission Physical Exam Findings: WITHDRAWAL SYMPTOMS. Laboratory Tests 06/01/17 06/02/17 06/02/17 23:10 07:00 07:00 WBC 8.7 RBC 4.48 Hgb 12.9 Hct 39.7 MCV 88.6 MCH 28.7 MCHC 32.4 RDW 14.2 Plt Count 292 D MPV 8.7 Sodium 141 Potassium 4.3 Chloride 104 Carbon Dioxide 30 Anion Gap 7 L BUN 16 D Creatinine 1.2 Creat Clearance w eGFR > 60 Random Glucose 71 L D Calcium 9.2 Total Bilirubin 0.5 D AST 13 L ALT 17 Alkaline Phosphatase 101 Total Protein 6.6 Albumin 3.4 Urine Color Yellow Urine Appearance Clear Urine pH 6.0 Ur Specific [place] 1.018 Urine Protein Negative Urine Glucose (UA) Negative Urine Ketones Negative Urine Blood Negative Urine Nitrite Negative Urine Bilirubin Negative Urine Urobilinogen Negative Ur Leukocyte Esterase Negative RPR Titer 06/02/17 07:00 WBC RBC Hgb Hct MCV MCH MCHC RDW Plt Count MPV Sodium Potassium Chloride Carbon Dioxide Anion Gap BUN Creatinine Creat Clearance w eGFR Random Glucose Calcium Total Bilirubin AST ALT Alkaline Phosphatase Total Protein Albumin Urine Color Urine Appearance Urine pH Ur Specific [place] Urine Protein Urine Glucose (UA) Urine Ketones Urine Blood Urine Nitrite Urine Bilirubin Urine Urobilinogen Ur Leukocyte Esterase RPR Titer Nonreactive LABS NOTED. - Treatment Hospital Course: Detoxed Safely - Medication Discharge Medications: Ambulatory Orders NK [No Known Home Medication] 04/06/17 - Diagnosis (1) Alcohol dependence with uncomplicated withdrawal Status: Acute (2) Nicotine dependence Status: Acute Qualifiers: Nicotine product type: cigarettes Substance use status: in withdrawal Qualified Code(s): F17.213 - Nicotine dependence, cigarettes, with withdrawal (3) Opioid dependence with withdrawal Status: Acute (4) Degenerative joint disease of left hip Status: Chronic Qualifiers: Osteoarthritis type: primary Qualified Code(s): M16.12 - Unilateral primary osteoarthritis, left hip (5) Bipolar II disorder Status: Suspected (6) Dry skin dermatitis Status: Acute (7) Positive PPD, treated Status: Resolved (8) Drug-induced mood disorder Status: Suspected - AMA Did Patient Leave Against Medical Advice: Yes (PATIENT DID NOT WISH TO STAY TO COMPLETE DETOX REGIMEN.)
[2017-06-03] MEDS ORDERED: chlordiazePOXIDE 5 MG CAPSULE PO SCH (23:00)
[2017-06-04] MEDS ORDERED: chlordiazePOXIDE HCL 10 MG CAPSULE PO SCH (23:00)
[2017-06-05] MEDS ORDERED: METHADONE HCL 10 MG TABLET (FOR DETOX USE ONLY) PO SCH (10:00)
[2017-06-06] MEDS ORDERED: METHADONE HCL 5 MG TABLET (FOR DETOX USE ONLY) PO SCH (06:00)
== END 2017-06-03 13:20 | disposition left against medical advice (07) | DRG 770 ==
LOC: YASAS 19:29 → Y3N 20:50
PROVIDERS: ADMIT Internal Medicine; ATTEND Internal Medicine
PROC: HZ2ZZZZ Detoxification Services for Substance Abuse Treatment (ICD-10-PCS; principal; 2017-06-01)
DX: F11.23 Opioid dependence with withdrawal (principal); F10.230 Alcohol dependence with withdrawal, uncomplicated; F17.213 Nicotine dependence, cigarettes, with withdrawal; F31.81 Bipolar II disorder; F19.24 Other psychoactive substance dependence with psychoactive substance-induced mood disorder; L85.3 Xerosis cutis; R76.11 Nonspecific reaction to tuberculin skin test without active tuberculosis; M16.12 Unilateral primary osteoarthritis, left hip
CPT/HCPCS: 36415; 80053; 81003; 85027; 86593; 93005; 93010

== ENCOUNTER 2017-07-17 18:58 | Inpatient (IN) | payer OTHER ==
[2017-07-17 20:29] VITALS: BMI 27.8
[2017-07-17] MEDS ORDERED: METHADONE HCL 10 MG TABLET (FOR DETOX USE ONLY) PO ONE ×2 (23:00→23:03)
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
[2017-07-17] MEDS ORDERED: NICOTINE POLACRILEX 2 MG GUM BC PRN (23:03)
[2017-07-17] MEDS ORDERED: MAGNESIUM CITRATE 300 ML BOTTLE PO PRN (23:03)
[2017-07-17] MEDS ORDERED: MAGNESIUM HYDROX 2400MG/30ML ORAL SUSPENSION 30 ML CUP PO PRN (23:03)
[2017-07-17] MEDS ORDERED: IBUPROFEN 400 MG TABLET (FP) PO PRN (23:03)
[2017-07-17] MEDS ORDERED: P-EPHED 60MG/TRIPROLIDI 2.5MG TABLET PO PRN (23:03)
[2017-07-17] MEDS ORDERED: MAG HYDROX/AL HYDROX/SIMETH 30 ML UNIT-DOSE CUP PO PRN (23:03)
[2017-07-17] MEDS ORDERED: ACETAMINOPHEN 325 MG TABLET (FP) PO PRN (23:03)
[2017-07-17] MEDS ORDERED: guaiFENesin/D-METHORPHAN HB 10 ML UNIT-DOSE CUPS PO PRN (23:03)
[2017-07-17] MEDS ORDERED: LOPERAMIDE HCL 2 MG CAPSULE PO PRN (23:03)
[2017-07-17] MEDS ORDERED: MENTHOL/PHENOL 1 EACH UD MM PRN (23:03)
[2017-07-18 02:09] LABS: URINE APPEARANCE CLEAR; URINE BILIRUBIN NEGATIVE (NEGATIVE); URINE BLOOD NEGATIVE (NEGATIVE); URINE COLOR YELLOW; URINE GLUCOSE (UA) NEGATIVE (NEGATIVE); URINE KETONE TRACE (NEGATIVE); URINE LEUK ESTERASE NEGATIVE (NEGATIVE); URINE NITRITE NEGATIVE (NEGATIVE); URINE UROBILINOGEN NEGATIVE mg/dL (0.2-1.0)
[2017-07-18 02:16] LABS: URINE PROTEIN 1+ (NEGATIVE)
[2017-07-18 02:26] LABS: EPI CELLS RARE /HPF (FEW); URINE MUCUS RARE
--- NOTE | 2017-07-18 09:46 | PN ---
BHS COWS - Scale Resting Pulse: 0= VT 80 or Below Sweatin= Chills/Flushing Restless Observation: 3= Extraneous Movement Pupil Size: 1= Pupils >than Normal Bone or Joint Aches: 2= Severe Diffuse Aches Runny Nose/ Eye Tearin= Runny Nose/Eyes GI Upset > 30mins: 3= Vomiting/Diarrhea Tremor Observation of Outstretched Hands: 2= Slight Tremor Visible Yawning Observation: 1= 1-2x During Session Anxiety or Irritability: 2=Irritable/Anxious Goose Flesh Skin: 0=Smooth Skin COWS Score: 17 S Progress Note (SOAP) Subjective: ALERT,IRRITABLE,ANXIOUS,INTERRUPTED SLEEP,TREMOR,PAIN IN THE BODY AND BACK Objective: 07/18/17 09:45 Vital Signs Temperature 97.7 F 07/18/17 06:18 Pulse Rate 80 07/18/17 06:18 Respiratory Rate 19 07/18/17 06:18 Blood Pressure 100/52 07/18/17 06:18 O2 Sat by Pulse Oximetry (%) EKG NSR Laboratory Last Values Urine Color Yellow 07/17/17 22:41 Urine Appearance Clear 07/17/17 22:41 Urine pH 6.0 (5.0-8.0) 07/17/17 22:41 Ur Specific [place] 1.024 (1.001-1.035) 07/17/17 22:41 Urine Protein 1+ (NEGATIVE) H 07/17/17 22:41 Urine Glucose (UA) Negative (NEGATIVE) 07/17/17 22:41 Urine Ketones Trace (NEGATIVE) H 07/17/17 22:41 Urine Blood Negative (NEGATIVE) 07/17/17 22:41 Urine Nitrite Negative (NEGATIVE) 07/17/17 22:41 Urine Bilirubin Negative (NEGATIVE) 07/17/17 22:41 Urine Urobilinogen Negative mg/dL (0.2-1.0) 07/17/17 22:41 Ur Leukocyte Esterase Negative (NEGATIVE) 07/17/17 22:41 Urine WBC (Auto) 2 /hpf (3-5) 07/17/17 22:41 Urine RBC (Auto) 7 /hpf (0-3) 07/17/17 22:41 Ur Epithelial Cells Rare /HPF (FEW) 07/17/17 22:41 Urine Mucus Rare 07/17/17 22:41 07/18/17 09:46 LABS PENDING Assessment: 07/18/17 09:46 WITHDRAWAL SYMPTOM Plan: CONTINUE DETOX
[2017-07-18] MEDS ORDERED: METHADONE HCL 10 MG TABLET (FOR DETOX USE ONLY) PO ONE (10:00)
[2017-07-18] MEDS: PRENATAL VITAMINS W/ FOLIC ACID TABLET (FP) PO SCH (10:22)
[2017-07-18] MEDS: NICOTINE 14 MG/24 HOURS TOPICAL PATCH TD SCH (10:23)
[2017-07-18 10:45] LABS: HEMATOCRIT 40.6 % (35.4-49); HEMOGLOBIN 13.2 GM/dL (11.7-16.9); MCH 28.5 pg (25.7-33.7); MCHC 32.6 g/dl (32.0-35.9); MEAN CELL VOLUME 87.5 fl (80-96); PLATELET COUNT 313 K/MM3 (134-434); RBC 4.63 M/mm3 (4.00-5.60); RDW 14.6 % (11.9-15.9); WHITE BLOOD COUNT 6.8 K/mm3 (4.0-10.0)
[2017-07-18 11:12] LABS: ALBUMIN 3.3 g/dl (3.4-5.0); ANION GAP 5 (8-16); BLOOD UREA NITROGEN 16 mg/dL (7-18); CALCIUM 8.4 mg/dL (8.5-10.1); CHLORIDE 105 mmol/L (98-107); CO2 31 mmol/L (21-32); CREATININE 1.1 mg/dL (0.7-1.3); GLUCOSE,RANDOM 84 mg/dL (74-106); SGOT/AST 14 U/L (15-37); SODIUM 141 mmol/L (136-145)
[2017-07-18 11:21] LABS: ALK PHOS 101 U/L (45-117); BILIRUBIN,TOTAL 0.5 mg/dL (0.2-1.0); SGPT/ALT 18 U/L (12-78); TOT PROT 6.2 g/dl (6.4-8.2)
--- NOTE | 2017-07-18 16:52 | CONSULT ---
[facility] Psychiatric Consult - Data Date of interview: 07/18/17 Admission source: [facility] Identifying data: Patient is approached for psychiatric interview.Flatly refused." I have nothing to discuss." Nursing staff is made aware of patient's decision to abstain from contact with psychiatric senior health consultant.
[2017-07-18] MEDS: diazePAM 5 MG TABLET PO PRN (22:14)
[2017-07-18] MEDS: THIAMINE HCL 100 MG TABLET (FP) PO SCH (22:14)
--- NOTE | 2017-07-19 09:58 | PN ---
BHS COWS - Scale Resting Pulse: 0= MD 80 or Below Sweatin= Chills/Flushing Restless Observation: 1= Difficult to Sit Still Pupil Size: 1= Pupils >than Normal Bone or Joint Aches: 2= Severe Diffuse Aches Runny Nose/ Eye Tearin= Runny Nose/Eyes GI Upset > 30mins: 1= Stomach Cramp Tremor Observation of Outstretched Hands: 2= Slight Tremor Visible Yawning Observation: 1= 1-2x During Session Anxiety or Irritability: 2=Irritable/Anxious Goose Flesh Skin: 0=Smooth Skin COWS Score: 13 BHS Progress Note (SOAP) Subjective: joint aches sweat stuffy nose irritable agitation anxiety Objective: 07/19/17 09:58 Vital Signs Temperature 97.9 F 07/19/17 06:17 Pulse Rate 78 07/19/17 06:17 Respiratory Rate 18 07/19/17 06:17 Blood Pressure 145/78 07/19/17 06:17 O2 Sat by Pulse Oximetry (%) Laboratory Last Values WBC 6.8 K/mm3 (4.0-10.0) 07/18/17 07:50 RBC 4.63 M/mm3 (4.00-5.60) 07/18/17 07:50 Hgb 13.2 GM/dL (11.7-16.9) 07/18/17 07:50 Hct 40.6 % (35.4-49) 07/18/17 07:50 MCV 87.5 fl (80-96) 07/18/17 07:50 MCH 28.5 pg (25.7-33.7) 07/18/17 07:50 MCHC 32.6 g/dl (32.0-35.9) 07/18/17 07:50 RDW 14.6 % (11.9-15.9) 07/18/17 07:50 Plt Count 313 K/MM3 (134-434) 07/18/17 07:50 MPV 8.0 fl (7.5-11.1) 07/18/17 07:50 Sodium 141 mmol/L (136-145) 07/18/17 07:50 Potassium 4.0 mmol/L (3.5-5.1) 07/18/17 07:50 Chloride 105 mmol/L (98-107) 07/18/17 07:50 Carbon Dioxide 31 mmol/L (21-32) 07/18/17 07:50 Anion Gap 5 (8-16) L 07/18/17 07:50 BUN 16 mg/dL (7-18) 07/18/17 07:50 Creatinine 1.1 mg/dL (0.7-1.3) 07/18/17 07:50 Creat Clearance w eGFR > 60 (>60) 07/18/17 07:50 Random Glucose 84 mg/dL (74-106) 07/18/17 07:50 Calcium 8.4 mg/dL (8.5-10.1) L 07/18/17 07:50 Total Bilirubin 0.5 mg/dL (0.2-1.0) 07/18/17 07:50 AST 14 U/L (15-37) L 07/18/17 07:50 ALT 18 U/L (12-78) 07/18/17 07:50 Alkaline Phosphatase 101 U/L (45-117) 07/18/17 07:50 Total Protein 6.2 g/dl (6.4-8.2) L 07/18/17 07:50 Albumin 3.3 g/dl (3.4-5.0) L 07/18/17 07:50 Urine Color Yellow 07/17/17 22:41 Urine Appearance Clear 07/17/17 22:41 Urine pH 6.0 (5.0-8.0) 07/17/17 22:41 Ur Specific [place] 1.024 (1.001-1.035) 07/17/17 22:41 Urine Protein 1+ (NEGATIVE) H 07/17/17 22:41 Urine Glucose (UA) Negative (NEGATIVE) 07/17/17 22:41 Urine Ketones Trace (NEGATIVE) H 07/17/17 22:41 Urine Blood Negative (NEGATIVE) 07/17/17 22:41 Urine Nitrite Negative (NEGATIVE) 07/17/17 22:41 Urine Bilirubin Negative (NEGATIVE) 07/17/17 22:41 Urine Urobilinogen Negative mg/dL (0.2-1.0) 07/17/17 22:41 Ur Leukocyte Esterase Negative (NEGATIVE) 07/17/17 22:41 Urine WBC (Auto) 2 /hpf (3-5) 07/17/17 22:41 Urine RBC (Auto) 7 /hpf (0-3) 07/17/17 22:41 Ur Epithelial Cells Rare /HPF (FEW) 07/17/17 22:41 Urine Mucus Rare 07/17/17 22:41 RPR Titer Nonreactive (NONREACTIVE) 07/18/17 07:50 Hepatitis C Antibody 0.1 s/co ratio (0.0-0.9) 07/18/17 07:50 lab noted Assessment: 07/19/17 09:58 withdrawal sx Plan: continue detox
[2017-07-19] MEDS ORDERED: METHADONE HCL 5 MG TABLET (FOR DETOX USE ONLY) PO ONE (10:00)
[2017-07-19] MEDS: PRENATAL VITAMINS W/ FOLIC ACID TABLET (FP) PO SCH (10:26)
[2017-07-19] MEDS: NICOTINE 14 MG/24 HOURS TOPICAL PATCH TD SCH (10:26)
[2017-07-19] MEDS: diazePAM 5 MG TABLET PO PRN ×2 (10:26→22:29)
--- NOTE | 2017-07-19 13:16 | EKG ---
Test Reason : Blood Pressure : / mmHG Vent. Rate : 088 BPM Atrial Rate : 088 BPM P-R Int : 162 ms QRS Dur : 104 ms QT Int : 376 ms P-R-T Axes : 074 -14 046 degrees QTc Int : 454 ms NORMAL SINUS RHYTHM POSSIBLE LEFT ATRIAL ENLARGEMENT BORDERLINE ECG WHEN COMPARED WITH ECG OF 02-JUN-2017 00:54, NO SIGNIFICANT CHANGE WAS FOUND BASELINE ARTIFACT Confirmed by KRISTIN DWYER, REHAN ([id number] on 07/19/2017 1:16:37 PM Referred By: Confirmed By:REHAN FOSTER MD
[2017-07-19] MEDS: THIAMINE HCL 100 MG TABLET (FP) PO SCH (22:29)
[2017-07-20 06:11] VITALS: BP 124/78; PULSE 81; TEMP 98.1
--- NOTE | 2017-07-20 08:40 | PN ---
S Progress Note (SOAP) Subjective: ALERT,IRRITABLE,ANXIOUS,PAIN IN THE BODY AND BACK Objective: 07/20/17 08:39 Vital Signs Temperature 98.1 F 07/20/17 06:11 Pulse Rate 81 07/20/17 06:11 Respiratory Rate 18 07/20/17 06:11 Blood Pressure 124/78 07/20/17 06:11 O2 Sat by Pulse Oximetry (%) Assessment: 07/20/17 08:39 WITHDRAWAL SYMPTOM Plan: CONTINUE DETOX
--- NOTE | 2017-07-20 08:41 | PN ---
[facility] Progress Note Note: PATIENT DID NOT WANT TO COMPLETE TREATMENT,SIGNED RELEASE AMA,SEEN BY COUNSELOR, STATE HAD ENERGENCY FAMILY PROBLEM
--- NOTE | 2017-07-20 08:47 | DS ---
[facility] Detox Discharge Summary Admission Date: 07/17/17 Discharge Date: 07/20/17 - History Present History: Cannabis Dependence, Cocaine Dependence, Opioid Dependence Additional Comments: PATIENT DID NOT WANT TO COMPLETE TREATMENT,SIGNED RELEASE AMA,DUE TO EMERGENCY FAMILY PROBLEM,SEEN BY COUNSELOR Pertinent Past History: NICOTINE DEPENDENCE - Physical Exam Results Vital Signs: Vital Signs Temperature 98.1 F 07/20/17 06:11 Pulse Rate 81 07/20/17 06:11 Respiratory Rate 18 07/20/17 06:11 Blood Pressure 124/78 07/20/17 06:11 O2 Sat by Pulse Oximetry (%) Pertinent Admission Physical Exam Findings: WITHDRAWAL SYMPTOM AND FINDING - Treatment Patient has Accepted a Rehab Referral to: P - Medication Discharge Medications: Ambulatory Orders NK [No Known Home Medication] 04/06/17 - Diagnosis (1) Opioid dependence with withdrawal Current Visit: No Status: Acute (2) Nicotine dependence Current Visit: No Status: Acute Qualifiers: Nicotine product type: cigarettes Substance use status: in withdrawal Qualified Code(s): F17.213 - Nicotine dependence, cigarettes, with withdrawal (3) Cocaine dependence Current Visit: Yes Status: Acute (4) Nicotine dependence Current Visit: No Status: Chronic Qualifiers: Nicotine product type: cigarettes Substance use status: in withdrawal Qualified Code(s): F17.213 - Nicotine dependence, cigarettes, with withdrawal (5) Cannabis dependence Current Visit: Yes Status: Acute - AMA Did Patient Leave Against Medical Advice: Yes
[2017-07-20] MEDS ORDERED: METHADONE HCL 5 MG TABLET (FOR DETOX USE ONLY) PO ONE (10:00)
[2017-07-21] MEDS ORDERED: METHADONE HCL 10 MG TABLET (FOR DETOX USE ONLY) PO ONE (10:00)
[2017-07-22] MEDS ORDERED: METHADONE HCL 5 MG TABLET (FOR DETOX USE ONLY) PO ONE (06:00)
== END 2017-07-20 09:20 | disposition left against medical advice (07) | DRG 770 ==
LOC: YASAS 18:58 → Y6N 21:04
PROVIDERS: ADMIT Internal Medicine; ATTEND Internal Medicine
PROC: HZ2ZZZZ Detoxification Services for Substance Abuse Treatment (ICD-10-PCS; principal; 2017-07-17)
DX: F11.23 Opioid dependence with withdrawal (principal); F14.20 Cocaine dependence, uncomplicated; F12.20 Cannabis dependence, uncomplicated; F17.213 Nicotine dependence, cigarettes, with withdrawal
CPT/HCPCS: 36415; 80053; 81003; 81015; 85027; 86593; 86803; 93005; 93010

== ENCOUNTER 2017-08-09 11:55 | Inpatient (IN) | payer OTHER ==
[2017-08-09 13:07] VITALS: BMI 28.1
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
[2017-08-09] MEDS ORDERED: P-EPHED 60MG/TRIPROLIDI 2.5MG TABLET PO PRN (13:19)
[2017-08-09] MEDS ORDERED: IBUPROFEN 400 MG TABLET (FP) PO PRN (13:19)
[2017-08-09] MEDS ORDERED: MENTHOL/PHENOL 1 EACH UD MM PRN (13:19)
[2017-08-09] MEDS ORDERED: MAGNESIUM HYDROX 2400MG/30ML ORAL SUSPENSION 30 ML CUP PO PRN (13:19)
[2017-08-09] MEDS ORDERED: MAG HYDROX/AL HYDROX/SIMETH 30 ML UNIT-DOSE CUP PO PRN (13:19)
[2017-08-09] MEDS ORDERED: LOPERAMIDE HCL 2 MG CAPSULE PO PRN (13:19)
[2017-08-09] MEDS ORDERED: guaiFENesin/D-METHORPHAN HB 10 ML UNIT-DOSE CUPS PO PRN (13:19)
[2017-08-09] MEDS ORDERED: chlordiazePOXIDE HCL 25 MG CAPSULE PO ONE (13:19)
[2017-08-09] MEDS ORDERED: hydrOXYzine PAMOATE 50 MG CAPSULE (FP) PO PRN (13:19)
[2017-08-09] MEDS ORDERED: MAGNESIUM CITRATE 300 ML BOTTLE PO PRN (13:19)
[2017-08-09] MEDS ORDERED: ACETAMINOPHEN 325 MG TABLET (FP) PO PRN (13:19)
[2017-08-09] MEDS ORDERED: chlordiazePOXIDE HCL 25 MG CAPSULE PO PRN (13:19)
[2017-08-09] MEDS ORDERED: METHADONE HCL 10 MG TABLET (FOR DETOX USE ONLY) PO ONE ×2 (13:19→23:00)
[2017-08-09] MEDS: chlordiazePOXIDE HCL 25 MG CAPSULE PO SCH ×2 (18:39→22:56)
[2017-08-09] MEDS: THIAMINE HCL 100 MG TABLET (FP) PO SCH (22:56)
[2017-08-09 23:05] LABS: URINE APPEARANCE TURBID; URINE BILIRUBIN NEGATIVE (NEGATIVE); URINE BLOOD NEGATIVE (NEGATIVE); URINE COLOR AMBER; URINE GLUCOSE (UA) NEGATIVE (NEGATIVE); URINE KETONE NEGATIVE (NEGATIVE); URINE LEUK ESTERASE NEGATIVE (NEGATIVE); URINE NITRITE NEGATIVE (NEGATIVE); URINE PROTEIN NEGATIVE (NEGATIVE); URINE UROBILINOGEN NEGATIVE mg/dL (0.2-1.0)
[2017-08-10] MEDS: chlordiazePOXIDE HCL 25 MG CAPSULE PO SCH ×4 (06:05→22:13)
[2017-08-10] MEDS ORDERED: METHADONE HCL 10 MG TABLET (FOR DETOX USE ONLY) PO SCH (10:00)
[2017-08-10] MEDS ORDERED: PRENATAL VITAMINS W/ FOLIC ACID TABLET (FP) PO SCH (10:00)
[2017-08-10 10:06] LABS: HEMATOCRIT 40.6 % (35.4-49); HEMOGLOBIN 12.9 GM/dL (11.7-16.9); MCH 28.5 pg (25.7-33.7); MCHC 31.9 g/dl (32.0-35.9); MEAN CELL VOLUME 89.3 fl (80-96); MEAN PLT VOLUME 8.5 fl (7.5-11.1); PLATELET COUNT 317 K/MM3 (134-434); RBC 4.54 M/mm3 (4.00-5.60); RDW 14.8 % (11.9-15.9); WHITE BLOOD COUNT 7.8 K/mm3 (4.0-10.0)
[2017-08-10 10:16] LABS: ALBUMIN 3.2 g/dl (3.4-5.0); ANION GAP 5 (8-16); BLOOD UREA NITROGEN 12 mg/dL (7-18); CALCIUM 8.7 mg/dL (8.5-10.1); CHLORIDE 106 mmol/L (98-107); CO2 30 mmol/L (21-32); CREATININE 0.9 mg/dL (0.7-1.3); GLUCOSE,RANDOM 83 mg/dL (74-106); SGOT/AST 12 U/L (15-37); SGPT/ALT 13 U/L (12-78); SODIUM 141 mmol/L (136-145)
[2017-08-10 10:17] LABS: ALK PHOS 100 U/L (45-117); BILIRUBIN,TOTAL 0.5 mg/dL (0.2-1.0); TOT PROT 6.2 g/dl (6.4-8.2)
--- NOTE | 2017-08-10 10:40 | PN ---
S CIWA - CIWA Score Nausea/Vomitin Muscle Tremors: 3 Anxiety: 4-Mod. Anxious/Guarded Agitation: 3 Paroxysmal Sweats: 3 Orientation: 0-Oriented Tacttile Disturbances: 0-None Auditory Disturbances: 0-None Visual Disturbances: 0-None Headache: 0-None Present CIWA-Ar Total Score: 16 BHS COWS - Scale Resting Pulse: 0= [place] 80 or Below Sweatin=Flushed/Facial Moisture Restless Observation: 1= Difficult to Sit Still Pupil Size: 0= Normal to Room Light Bone or Joint Aches: 1= Mild Discomfort Runny Nose/ Eye Tearin= Nasal Congestion GI Upset > 30mins: 1= Stomach Cramp Tremor Observation of Outstretched Hands: 2= Slight Tremor Visible Yawning Observation: 1= 1-2x During Session Anxiety or Irritability: 2=Irritable/Anxious Goose Flesh Skin: 0=Smooth Skin COWS Score: 11 S Progress Note (SOAP) Subjective: sweats sleep disturbance shakes Assessment: 08/10/17 10:45 A & O x 3 Vital Signs Temperature 97.5 F L 08/10/17 06:00 Pulse Rate 72 08/10/17 06:00 Respiratory Rate 18 08/10/17 06:00 Blood Pressure 114/70 08/10/17 06:00 O2 Sat by Pulse Oximetry (%) Laboratory Last Values WBC 7.8 K/mm3 (4.0-10.0) 08/10/17 06:30 RBC 4.54 M/mm3 (4.00-5.60) 08/10/17 06:30 Hgb 12.9 GM/dL (11.7-16.9) 08/10/17 06:30 Hct 40.6 % (35.4-49) 08/10/17 06:30 MCV 89.3 fl (80-96) 08/10/17 06:30 MCH 28.5 pg (25.7-33.7) 08/10/17 06:30 MCHC 31.9 g/dl (32.0-35.9) L 08/10/17 06:30 RDW 14.8 % (11.9-15.9) 08/10/17 06:30 Plt Count 317 K/MM3 (134-434) 08/10/17 06:30 MPV 8.5 fl (7.5-11.1) 08/10/17 06:30 Sodium 141 mmol/L (136-145) 08/10/17 06:30 Potassium 5.0 mmol/L (3.5-5.1) D 08/10/17 06:30 Chloride 106 mmol/L (98-107) 08/10/17 06:30 Carbon Dioxide 30 mmol/L (21-32) 08/10/17 06:30 Anion Gap 5 (8-16) L 08/10/17 06:30 BUN 12 mg/dL (7-18) D 08/10/17 06:30 Creatinine 0.9 mg/dL (0.7-1.3) 08/10/17 06:30 Creat Clearance w eGFR > 60 (>60) 08/10/17 06:30 Random Glucose 83 mg/dL (74-106) 08/10/17 06:30 Calcium 8.7 mg/dL (8.5-10.1) 08/10/17 06:30 Total Bilirubin 0.5 mg/dL (0.2-1.0) 08/10/17 06:30 AST 12 U/L (15-37) L 08/10/17 06:30 ALT 13 U/L (12-78) D 08/10/17 06:30 Alkaline Phosphatase 100 U/L (45-117) 08/10/17 06:30 Total Protein 6.2 g/dl (6.4-8.2) L 08/10/17 06:30 Albumin 3.2 g/dl (3.4-5.0) L 08/10/17 06:30 Urine Color [place] 08/09/17 15:47 Urine Appearance Turbid 08/09/17 15:47 Urine pH 6.0 (5.0-8.0) 08/09/17 15:47 Ur Specific [place] 1.024 (1.001-1.035) 08/09/17 15:47 Urine Protein Negative (NEGATIVE) 08/09/17 15:47 Urine Glucose (UA) Negative (NEGATIVE) 08/09/17 15:47 Urine Ketones Negative (NEGATIVE) 08/09/17 15:47 Urine Blood Negative (NEGATIVE) 08/09/17 15:47 Urine Nitrite Negative (NEGATIVE) 08/09/17 15:47 Urine Bilirubin Negative (NEGATIVE) 08/09/17 15:47 Urine Urobilinogen Negative mg/dL (0.2-1.0) 08/09/17 15:47 Ur Leukocyte Esterase Negative (NEGATIVE) 08/09/17 15:47 labs noted Plan: withdrawal sx continue detox increase hydration
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
[2017-08-10] MEDS: THIAMINE HCL 100 MG TABLET (FP) PO SCH (22:13)
--- NOTE | 2017-08-10 23:58 | EKG ---
Test Reason : Blood Pressure : / mmHG Vent. Rate : 072 BPM Atrial Rate : 072 BPM P-R Int : 176 ms QRS Dur : 094 ms QT Int : 402 ms P-R-T Axes : 075 -08 022 degrees QTc Int : 440 ms NORMAL SINUS RHYTHM NORMAL ECG WHEN COMPARED WITH ECG OF 17-JUL-2017 23:51, NO SIGNIFICANT CHANGE WAS FOUND Confirmed by MARSHA DAVIS MD ([id number]) on 08/10/2017 11:58:15 PM Referred By: Billy Torres Confirmed By:MARSHA DAVIS MD
[2017-08-11 05:46] VITALS: BP 110/69; PULSE 65; TEMP 97.1
[2017-08-11] MEDS: chlordiazePOXIDE HCL 25 MG CAPSULE PO SCH (05:49)
[2017-08-11] MEDS ORDERED: METHADONE HCL 5 MG TABLET (FOR DETOX USE ONLY) PO SCH (10:00)
--- NOTE | 2017-08-11 11:41 | DS ---
[facility] Detox Discharge Summary Admission Date: 08/09/17 Discharge Date: 08/11/17 - History Present History: Alcohol Dependence, Cannabis Dependence, Cocaine Dependence, Opioid Dependence, Sedative Dependence Additional Comments: PATIENT DOES NOT WISH TO STAY TO COMPLETE DETOX REGIMEN. RISKS OF LEAVING DETOX UNIT AGAINST MEDICAL ADVICE AND PRIOR TO COMPLETION OF DETOX REGIMEN EXPLAINED TO PATIENT. PATIENT ADVISED TO GO IMMEDIATELY TO NEAREST ER SHOULD ANY INTOLERABLE DETOX SYMPTOMS DEVELOP AT ANY TIME. PATIENT LEFT DETOX UNIT IN STABLE MEDICAL CONDITION. Pertinent Past History: Bipolar Disorder, Nicotine Dependence. - Physical Exam Results Vital Signs: Vital Signs Temperature 97.1 F L 08/11/17 05:46 Pulse Rate 65 08/11/17 05:46 Respiratory Rate 18 08/11/17 05:46 Blood Pressure 110/69 08/11/17 05:46 O2 Sat by Pulse Oximetry (%) Pertinent Admission Physical Exam Findings: WITHDRAWAL SYMPTOMS. Laboratory Tests 08/09/17 08/10/17 08/10/17 15:47 06:30 06:30 WBC 7.8 RBC 4.54 Hgb 12.9 Hct 40.6 MCV 89.3 MCH 28.5 MCHC 31.9 L RDW 14.8 Plt Count 317 MPV 8.5 Sodium 141 Potassium 5.0 D Chloride 106 Carbon Dioxide 30 Anion Gap 5 L BUN 12 D Creatinine 0.9 Creat Clearance w eGFR > 60 Random Glucose 83 Calcium 8.7 Total Bilirubin 0.5 AST 12 L ALT 13 D Alkaline Phosphatase 100 Total Protein 6.2 L Albumin 3.2 L Urine Color [place] Urine Appearance Turbid Urine pH 6.0 Ur Specific [place] 1.024 Urine Protein Negative Urine Glucose (UA) Negative Urine Ketones Negative Urine Blood Negative Urine Nitrite Negative Urine Bilirubin Negative Urine Urobilinogen Negative Ur Leukocyte Esterase Negative RPR Titer 08/10/17 06:30 WBC RBC Hgb Hct MCV MCH MCHC RDW Plt Count MPV Sodium Potassium Chloride Carbon Dioxide Anion Gap BUN Creatinine Creat Clearance w eGFR Random Glucose Calcium Total Bilirubin AST ALT Alkaline Phosphatase Total Protein Albumin Urine Color Urine Appearance Urine pH Ur Specific [place] Urine Protein Urine Glucose (UA) Urine Ketones Urine Blood Urine Nitrite Urine Bilirubin Urine Urobilinogen Ur Leukocyte Esterase RPR Titer Nonreactive LABS NOTED. - Treatment Hospital Course: Detoxed Safely - Medication Discharge Medications: Ambulatory Orders NK [No Known Home Medication] 04/06/17 - Diagnosis (1) Alcohol dependence with uncomplicated withdrawal Status: Acute (2) Drug-induced mood disorder Status: Acute (3) Opioid dependence with withdrawal Status: Acute (4) Sedative, hypnotic or anxiolytic dependence with withdrawal, uncomplicated Status: Acute (5) Cannabis dependence, uncomplicated Status: Chronic (6) Nicotine dependence Status: Chronic Qualifiers: Nicotine product type: cigarettes Substance use status: in withdrawal Qualified Code(s): F17.213 - Nicotine dependence, cigarettes, with withdrawal (7) Cocaine abuse Status: Acute (8) Bipolar II disorder Status: Suspected - AMA Did Patient Leave Against Medical Advice: Yes (PATIENT DID NOT WISH TO STAY TO COMPLETE DETOX REGIMEN.)
[2017-08-11] MEDS ORDERED: chlordiazePOXIDE 5 MG CAPSULE PO SCH (17:00)
[2017-08-12] MEDS ORDERED: chlordiazePOXIDE HCL 10 MG CAPSULE PO SCH (17:00)
[2017-08-13] MEDS ORDERED: METHADONE HCL 10 MG TABLET (FOR DETOX USE ONLY) PO SCH (10:00)
[2017-08-14] MEDS ORDERED: METHADONE HCL 5 MG TABLET (FOR DETOX USE ONLY) PO SCH (06:00)
== END 2017-08-11 09:36 | disposition left against medical advice (07) | DRG 770 ==
LOC: YASAS 11:55 → Y3N 14:07
PROVIDERS: ADMIT Internal Medicine; ATTEND Internal Medicine
PROC: HZ2ZZZZ Detoxification Services for Substance Abuse Treatment (ICD-10-PCS; principal; 2017-08-09)
DX: F11.23 Opioid dependence with withdrawal (principal); F13.230 Sedative, hypnotic or anxiolytic dependence with withdrawal, uncomplicated; F10.230 Alcohol dependence with withdrawal, uncomplicated; F14.20 Cocaine dependence, uncomplicated; F12.20 Cannabis dependence, uncomplicated; F17.210 Nicotine dependence, cigarettes, uncomplicated; F31.81 Bipolar II disorder; F19.24 Other psychoactive substance dependence with psychoactive substance-induced mood disorder
CPT/HCPCS: 36415; 80053; 81003; 85027; 86593; 93005; 93010

== ENCOUNTER 2018-07-30 15:12 | Inpatient (IN) | payer OTHER ==
[2018-07-30 16:19] VITALS: BMI 33.2
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
[2018-07-30] MEDS ORDERED: LOPERAMIDE HCL 2 MG CAPSULE PO PRN (21:35)
[2018-07-30] MEDS ORDERED: guaiFENesin/D-METHORPHAN HB 10 ML UNIT-DOSE CUPS PO PRN (21:35)
[2018-07-30] MEDS ORDERED: P-EPHED 60MG/TRIPROLIDI 2.5MG TABLET PO PRN (21:35)
[2018-07-30] MEDS ORDERED: ACETAMINOPHEN 325 MG TABLET (FP) PO PRN (21:35)
[2018-07-30] MEDS ORDERED: MAGNESIUM HYDROX 2400MG/30ML ORAL SUSPENSION 30 ML CUP PO PRN (21:35)
[2018-07-30] MEDS ORDERED: MAGNESIUM CITRATE 300 ML BOTTLE PO PRN (21:35)
[2018-07-30] MEDS ORDERED: MENTHOL/PHENOL 1 EACH UD MM PRN (21:35)
[2018-07-30] MEDS ORDERED: chlordiazePOXIDE HCL 25 MG CAPSULE PO PRN (21:35)
[2018-07-30] MEDS ORDERED: IBUPROFEN 400 MG TABLET (FP) PO PRN (21:35)
[2018-07-30] MEDS ORDERED: MAG HYDROX/AL HYDROX/SIMETH 30 ML UNIT-DOSE CUP PO PRN (21:35)
[2018-07-30] MEDS ORDERED: METHADONE HCL 10 MG TABLET (FOR DETOX USE ONLY) PO ONE ×2 (22:15→23:00)
[2018-07-30] MEDS: THIAMINE HCL 100 MG TABLET (FP) PO SCH (23:51)
[2018-07-30] MEDS: chlordiazePOXIDE HCL 25 MG CAPSULE PO SCH (23:52)
[2018-07-31] MEDS: chlordiazePOXIDE HCL 25 MG CAPSULE PO SCH ×4 (05:27→22:18)
[2018-07-31] MEDS ORDERED: METHADONE HCL 10 MG TABLET (FOR DETOX USE ONLY) PO SCH (10:00)
[2018-07-31] MEDS: PRENATAL VITAMINS W/ FOLIC ACID TABLET (FP) PO SCH (10:26)
[2018-07-31 11:31] LABS: ALBUMIN 3.4 g/dl (3.4-5.0); ALK PHOS 105 U/L (45-117); ANION GAP 5 MMOL/L (8-16); BILIRUBIN,TOTAL 0.4 mg/dL (0.2-1); BLOOD UREA NITROGEN 19 mg/dL (7-18); CALCIUM 9.2 mg/dL (8.5-10.1); CHLORIDE 104 mmol/L (98-107); CO2 30 mmol/L (21-32); GLUCOSE,RANDOM 86 mg/dL (74-106); POTASSIUM 4.1 mmol/L (3.5-5.1); SGOT/AST 14 U/L (15-37); SGPT/ALT 15 U/L (13-61); SODIUM 139 mmol/L (136-145); TOT PROT 6.3 g/dl (6.4-8.2)
[2018-07-31 11:35] LABS: HEMATOCRIT 39.9 % (35.4-49); HEMOGLOBIN 13.8 GM/dL (11.7-16.9); MCHC 34.6 g/dl (32.0-35.9); MEAN CELL VOLUME 89.6 fl (80-96); MEAN PLT VOLUME 8.9 fl (7.5-11.1); PLATELET COUNT 256 K/MM3 (134-434); RBC 4.45 M/mm3 (4.00-5.60); WHITE BLOOD COUNT 7.8 K/mm3 (4.0-10.0)
--- NOTE | 2018-07-31 14:42 | PN ---
[facility] CIWA - CIWA Score Nausea/Vomitin-No Nausea/No Vomiting Muscle Tremors: None Anxiety: 3 Agitation: 1-Slight > Activity Paroxysmal Sweats: 3 Orientation: 0-Oriented Tacttile Disturbances: 2-Mild Itch/Numbness/Burn Auditory Disturbances: 2-Mild Harshness/Frighten Visual Disturbances: 0-None Headache: 0-None Present CIWA-Ar Total Score: 11 S COWS - Scale Resting Pulse: 0= [place] 80 or Below Sweatin= Chills/Flushing Restless Observation: 0= Sits Still Pupil Size: 0= Normal to Room Light Bone or Joint Aches: 2= Severe Diffuse Aches Runny Nose/ Eye Tearin= None GI Upset > 30mins: 0= None Tremor Observation of Outstretched Hands: 0= None Yawning Observation: 2= >3x During Session Anxiety or Irritability: 2=Irritable/Anxious Goose Flesh Skin: 3=Piloerection COWS Score: 10 S Progress Note (SOAP) Subjective: Body Aches, Sweating, Interrupted Sleep. Objective: PATIENT A & O X 3. IN NO ACUTE DISTRESS. 07/31/18 14:43 Vital Signs Temperature 97.2 F L 07/31/18 14:41 Pulse Rate 38 L 07/31/18 14:41 Respiratory Rate 20 07/31/18 14:41 Blood Pressure 104/60 07/31/18 14:41 O2 Sat by Pulse Oximetry (%) Laboratory Tests 07/31/18 07/31/18 07/31/18 07:45 07:45 07:45 WBC 7.8 RBC 4.45 Hgb 13.8 Hct 39.9 MCV 89.6 MCH 31.0 MCHC 34.6 RDW 14.0 Plt Count 256 MPV 8.9 Sodium 139 Potassium 4.1 Chloride 104 Carbon Dioxide 30 Anion Gap 5 L BUN 19 H Creatinine 1.0 Creat Clearance w eGFR > 60 Random Glucose 86 Calcium 9.2 Total Bilirubin 0.4 AST 14 L ALT 15 Alkaline Phosphatase 105 Total Protein 6.3 L Albumin 3.4 RPR Titer Nonreactive LABS NOTED. Assessment: 07/31/18 14:44 WITHDRAWAL SYMPTOMS. Plan: CONTINUE DETOX. INCREASE DAILY PO FLUID INTAKE.
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
[2018-07-31] MEDS: THIAMINE HCL 100 MG TABLET (FP) PO SCH (22:18)
[2018-07-31] MEDS: MELATONIN 5 MG TABLETS PO PRN (22:18)
[2018-08-01] MEDS: chlordiazePOXIDE HCL 25 MG CAPSULE PO SCH ×3 (05:40→17:29)
[2018-08-01] MEDS: PRENATAL VITAMINS W/ FOLIC ACID TABLET (FP) PO SCH (10:35)
[2018-08-01] MEDS: METHADONE HCL 5 MG TABLET (FOR DETOX USE ONLY) PO SCH (10:35)
--- NOTE | 2018-08-01 13:37 | PN ---
[facility] CIWA - CIWA Score Nausea/Vomitin-Mild Nausea/No Vomiting Muscle Tremors: 2 Anxiety: 2 Agitation: 2 Paroxysmal Sweats: 1-Minimal Palms Moist Orientation: 0-Oriented Tacttile Disturbances: 0-None Auditory Disturbances: 0-None Visual Disturbances: 0-None Headache: 0-None Present CIWA-Ar Total Score: 8 [facility] COWS - Scale Resting Pulse: 0= [place] 80 or Below Sweatin= Chills/Flushing Restless Observation: 0= Sits Still Pupil Size: 0= Normal to Room Light Bone or Joint Aches: 1= Mild Discomfort Runny Nose/ Eye Tearin= Nasal Congestion GI Upset > 30mins: 1= Stomach Cramp Tremor Observation of Outstretched Hands: 1= Tremor [place], Not Seen Yawning Observation: 2= >3x During Session Anxiety or Irritability: 1=Feels Anxious/Irritable Goose Flesh Skin: 0=Smooth Skin COWS Score: 8 S Progress Note (SOAP) Subjective: body aches joints pain back pain tremor sweating Objective: 08/01/18 13:40 Vital Signs Temperature 96.1 F L 08/01/18 09:33 Pulse Rate 64 08/01/18 09:33 Respiratory Rate 20 08/01/18 09:33 Blood Pressure 106/72 08/01/18 09:33 O2 Sat by Pulse Oximetry (%) Laboratory Last Values WBC 7.8 K/mm3 (4.0-10.0) 07/31/18 07:45 RBC 4.45 M/mm3 (4.00-5.60) 07/31/18 07:45 Hgb 13.8 GM/dL (11.7-16.9) 07/31/18 07:45 Hct 39.9 % (35.4-49) 07/31/18 07:45 MCV 89.6 fl (80-96) 07/31/18 07:45 MCH 31.0 pg (25.7-33.7) 07/31/18 07:45 MCHC 34.6 g/dl (32.0-35.9) 07/31/18 07:45 RDW 14.0 % (11.9-15.9) 07/31/18 07:45 Plt Count 256 K/MM3 (134-434) 07/31/18 07:45 MPV 8.9 fl (7.5-11.1) 07/31/18 07:45 Sodium 139 mmol/L (136-145) 07/31/18 07:45 Potassium 4.1 mmol/L (3.5-5.1) 07/31/18 07:45 Chloride 104 mmol/L (98-107) 07/31/18 07:45 Carbon Dioxide 30 mmol/L (21-32) 07/31/18 07:45 Anion Gap 5 MMOL/L (8-16) L 07/31/18 07:45 BUN 19 mg/dL (7-18) H 07/31/18 07:45 Creatinine 1.0 mg/dL (0.55-1.3) 07/31/18 07:45 Creat Clearance w eGFR > 60 (>60) 07/31/18 07:45 Random Glucose 86 mg/dL (74-106) 07/31/18 07:45 Calcium 9.2 mg/dL (8.5-10.1) 07/31/18 07:45 Total Bilirubin 0.4 mg/dL (0.2-1) 07/31/18 07:45 AST 14 U/L (15-37) L 07/31/18 07:45 ALT 15 U/L (13-61) 07/31/18 07:45 Alkaline Phosphatase 105 U/L (45-117) 07/31/18 07:45 Total Protein 6.3 g/dl (6.4-8.2) L 07/31/18 07:45 Albumin 3.4 g/dl (3.4-5.0) 07/31/18 07:45 RPR Titer Nonreactive (NONREACTIVE) 07/31/18 07:45 lab noted Assessment: 08/01/18 13:41 withdrawal sx Plan: continue detox
[2018-08-01] MEDS: chlordiazePOXIDE 5 MG CAPSULE PO SCH (22:37)
[2018-08-01] MEDS: THIAMINE HCL 100 MG TABLET (FP) PO SCH (22:37)
[2018-08-01] MEDS: MELATONIN 5 MG TABLETS PO PRN (22:38)
[2018-08-02] MEDS: chlordiazePOXIDE 5 MG CAPSULE PO SCH ×2 (05:22→10:54)
--- NOTE | 2018-08-02 10:37 | PN ---
[facility] CIWA - CIWA Score Nausea/Vomitin-No Nausea/No Vomiting Muscle Tremors: 2 Anxiety: 1-Mildly Anxious Agitation: 1-Slight > Activity Paroxysmal Sweats: 1-Minimal Palms Moist Orientation: 1-Uncertain about Date Tacttile Disturbances: 0-None Auditory Disturbances: 0-None Visual Disturbances: 0-None Headache: 1-Very Mild CIWA-Ar Total Score: 7 S COWS - Scale Resting Pulse: 0= [place] 80 or Below Sweatin= Chills/Flushing Restless Observation: 0= Sits Still Pupil Size: 0= Normal to Room Light Bone or Joint Aches: 1= Mild Discomfort Runny Nose/ Eye Tearin= Nasal Congestion GI Upset > 30mins: 1= Stomach Cramp Tremor Observation of Outstretched Hands: 1= Tremor [place], Not Seen Yawning Observation: 1= 1-2x During Session Anxiety or Irritability: 1=Feels Anxious/Irritable Goose Flesh Skin: 0=Smooth Skin COWS Score: 7 [facility] Progress Note (SOAP) Subjective: muscle cramp tremor otherwise feeling ok Objective: 08/02/18 10:36 Vital Signs Temperature 97.0 F L 08/02/18 09:19 Pulse Rate 68 08/02/18 09:19 Respiratory Rate 18 08/02/18 09:19 Blood Pressure 95/55 L 08/02/18 09:19 O2 Sat by Pulse Oximetry (%) Laboratory Last Values WBC 7.8 K/mm3 (4.0-10.0) 07/31/18 07:45 RBC 4.45 M/mm3 (4.00-5.60) 07/31/18 07:45 Hgb 13.8 GM/dL (11.7-16.9) 07/31/18 07:45 Hct 39.9 % (35.4-49) 07/31/18 07:45 MCV 89.6 fl (80-96) 07/31/18 07:45 MCH 31.0 pg (25.7-33.7) 07/31/18 07:45 MCHC 34.6 g/dl (32.0-35.9) 07/31/18 07:45 RDW 14.0 % (11.9-15.9) 07/31/18 07:45 Plt Count 256 K/MM3 (134-434) 07/31/18 07:45 MPV 8.9 fl (7.5-11.1) 07/31/18 07:45 Sodium 139 mmol/L (136-145) 07/31/18 07:45 Potassium 4.1 mmol/L (3.5-5.1) 07/31/18 07:45 Chloride 104 mmol/L (98-107) 07/31/18 07:45 Carbon Dioxide 30 mmol/L (21-32) 07/31/18 07:45 Anion Gap 5 MMOL/L (8-16) L 07/31/18 07:45 BUN 19 mg/dL (7-18) H 07/31/18 07:45 Creatinine 1.0 mg/dL (0.55-1.3) 07/31/18 07:45 Creat Clearance w eGFR > 60 (>60) 07/31/18 07:45 Random Glucose 86 mg/dL (74-106) 07/31/18 07:45 Calcium 9.2 mg/dL (8.5-10.1) 07/31/18 07:45 Total Bilirubin 0.4 mg/dL (0.2-1) 07/31/18 07:45 AST 14 U/L (15-37) L 07/31/18 07:45 ALT 15 U/L (13-61) 07/31/18 07:45 Alkaline Phosphatase 105 U/L (45-117) 07/31/18 07:45 Total Protein 6.3 g/dl (6.4-8.2) L 07/31/18 07:45 Albumin 3.4 g/dl (3.4-5.0) 07/31/18 07:45 RPR Titer Nonreactive (NONREACTIVE) 07/31/18 07:45 lab noted Assessment: 08/02/18 10:37 withdrawal sx Plan: continue detox
[2018-08-02] MEDS: METHADONE HCL 5 MG TABLET (FOR DETOX USE ONLY) PO SCH (10:53)
[2018-08-02] MEDS: PRENATAL VITAMINS W/ FOLIC ACID TABLET (FP) PO SCH (10:54)
[2018-08-02 13:57] VITALS: BP 100/53; PULSE 63; TEMP 97.6
--- NOTE | 2018-08-02 15:35 | DS ---
[facility] Detox Discharge Summary Admission Date: 07/30/18 Discharge Date: 08/02/18 - History Present History: Alcohol Dependence, Opioid Dependence Additional Comments: 37 years old male admitted on 07/30/18 for alcohol and opiate withdrawal stabilization patient was doing well throughout the detox process after lunch and napping patient insists to leave the detox unit that he wants to return to his outreach program where he attended x "months" and preferred to return to the program patient is alert no acute distress denies suicidal ideation Pertinent Past History: respect to patient's preference and value that patient wants to return to outreach program - Physical Exam Results Vital Signs: Vital Signs Temperature 97.6 F 08/02/18 13:55 Pulse Rate 63 08/02/18 13:55 Respiratory Rate 18 08/02/18 13:55 Blood Pressure 100/53 L 08/02/18 13:55 O2 Sat by Pulse Oximetry (%) Pertinent Admission Physical Exam Findings: alcohol and opiate withdrawal sx Laboratory Last Values WBC 7.8 K/mm3 (4.0-10.0) 07/31/18 07:45 RBC 4.45 M/mm3 (4.00-5.60) 07/31/18 07:45 Hgb 13.8 GM/dL (11.7-16.9) 07/31/18 07:45 Hct 39.9 % (35.4-49) 07/31/18 07:45 MCV 89.6 fl (80-96) 07/31/18 07:45 MCH 31.0 pg (25.7-33.7) 07/31/18 07:45 MCHC 34.6 g/dl (32.0-35.9) 07/31/18 07:45 RDW 14.0 % (11.9-15.9) 07/31/18 07:45 Plt Count 256 K/MM3 (134-434) 07/31/18 07:45 MPV 8.9 fl (7.5-11.1) 07/31/18 07:45 Sodium 139 mmol/L (136-145) 07/31/18 07:45 Potassium 4.1 mmol/L (3.5-5.1) 07/31/18 07:45 Chloride 104 mmol/L (98-107) 07/31/18 07:45 Carbon Dioxide 30 mmol/L (21-32) 07/31/18 07:45 Anion Gap 5 MMOL/L (8-16) L 07/31/18 07:45 BUN 19 mg/dL (7-18) H 07/31/18 07:45 Creatinine 1.0 mg/dL (0.55-1.3) 07/31/18 07:45 Creat Clearance w eGFR > 60 (>60) 07/31/18 07:45 Random Glucose 86 mg/dL (74-106) 07/31/18 07:45 Calcium 9.2 mg/dL (8.5-10.1) 07/31/18 07:45 Total Bilirubin 0.4 mg/dL (0.2-1) 07/31/18 07:45 AST 14 U/L (15-37) L 07/31/18 07:45 ALT 15 U/L (13-61) 07/31/18 07:45 Alkaline Phosphatase 105 U/L (45-117) 07/31/18 07:45 Total Protein 6.3 g/dl (6.4-8.2) L 07/31/18 07:45 Albumin 3.4 g/dl (3.4-5.0) 07/31/18 07:45 RPR Titer Nonreactive (NONREACTIVE) 07/31/18 07:45 lab noted - Treatment Hospital Course: Detox Protocol Followed, Responded well Patient has Accepted a Rehab Referral to: outreach program - Medication Discharge Medications: Ambulatory Orders Naloxone HCl [Narcan] 4 mg NS ASDIR PRN #1 spray 08/02/18 - Diagnosis (1) Alcohol dependence with uncomplicated withdrawal Status: Acute (2) Opioid dependence with withdrawal Status: Acute (3) PPD positive Status: Resolved (4) Substance induced mood disorder Status: Suspected (5) Nicotine dependence Status: Acute Qualifiers: Nicotine product type: cigarettes Substance use status: in withdrawal Qualified Code(s): F17.213 - Nicotine dependence, cigarettes, with withdrawal - AMA Did Patient Leave Against Medical Advice: Yes
[2018-08-02] MEDS ORDERED: chlordiazePOXIDE HCL 10 MG CAPSULE PO SCH (23:00)
[2018-08-03] MEDS ORDERED: METHADONE HCL 10 MG TABLET (FOR DETOX USE ONLY) PO SCH (10:00)
[2018-08-04] MEDS ORDERED: METHADONE HCL 5 MG TABLET (FOR DETOX USE ONLY) PO SCH (06:00)
== END 2018-08-02 15:01 | disposition left against medical advice (07) | DRG 770 ==
LOC: YASAS 15:12 → Y3N 22:09
PROVIDERS: ADMIT Surgery; ATTEND Surgery
PROC: HZ2ZZZZ Detoxification Services for Substance Abuse Treatment (ICD-10-PCS; principal; 2018-07-30)
DX: F11.23 Opioid dependence with withdrawal (principal); F14.20 Cocaine dependence, uncomplicated; F12.20 Cannabis dependence, uncomplicated; F17.213 Nicotine dependence, cigarettes, with withdrawal; F19.24 Other psychoactive substance dependence with psychoactive substance-induced mood disorder; F41.9 Anxiety disorder, unspecified; F32.9 Major depressive disorder, single episode, unspecified; R76.11 Nonspecific reaction to tuberculin skin test without active tuberculosis; M19.079 Primary osteoarthritis, unspecified ankle and foot
CPT/HCPCS: 36415; 80053; 85027; 86593

== ENCOUNTER 2018-08-27 14:32 | Inpatient (IN) | payer OTHER ==
[2018-08-27 16:38] VITALS: BMI 32.1
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
[2018-08-27] MEDS ORDERED: BISMUTH SUBSALICYLATE 524 MG/30 ML UD PO PRN (18:19)
[2018-08-27] MEDS ORDERED: METHOCARBAMOL 500 MG TABLET PO PRN (18:19)
[2018-08-27] MEDS ORDERED: MENTHOL/PHENOL 1 EACH UD MM PRN (18:19)
[2018-08-27] MEDS ORDERED: MAG HYDROX/AL HYDROX/SIMETH 30 ML UNIT-DOSE CUP PO PRN (18:19)
[2018-08-27] MEDS ORDERED: IBUPROFEN 400 MG TABLET (FP) PO PRN (18:19)
[2018-08-27] MEDS ORDERED: MAGNESIUM HYDROX 2400MG/30ML ORAL SUSPENSION 30 ML CUP PO PRN (18:19)
[2018-08-27] MEDS ORDERED: MAGNESIUM CITRATE 300 ML BOTTLE PO PRN (18:19)
[2018-08-27] MEDS ORDERED: cloNIDine HCL 0.1 MG TABLET PO PRN (18:19)
[2018-08-27] MEDS ORDERED: ACETAMINOPHEN 325 MG TABLET (FP) PO PRN ×2 (18:19)
[2018-08-27] MEDS: chlordiazePOXIDE HCL 10 MG CAPSULE PO PRN (19:30)
[2018-08-27] MEDS: THIAMINE HCL 100 MG TABLET (FP) PO SCH (22:15)
[2018-08-27] MEDS: chlordiazePOXIDE HCL 25 MG CAPSULE PO SCH (22:15)
[2018-08-27] MEDS ORDERED: METHADONE HCL 10 MG TABLET (FOR DETOX USE ONLY) PO ONE (23:00)
[2018-08-28] MEDS: chlordiazePOXIDE HCL 25 MG CAPSULE PO SCH ×2 (05:41→14:34)
[2018-08-28] MEDS ORDERED: METHADONE HCL 10 MG TABLET (FOR DETOX USE ONLY) PO ONE (10:00)
[2018-08-28] MEDS: PRENATAL VITAMINS W/ FOLIC ACID TABLET (FP) PO SCH (10:44)
[2018-08-28 10:45] LABS: HEMATOCRIT 37.9 % (35.4-49); HEMOGLOBIN 12.8 GM/dL (11.7-16.9); MCH 30.2 pg (25.7-33.7); MCHC 33.7 g/dl (32.0-35.9); MEAN CELL VOLUME 89.6 fl (80-96); MEAN PLT VOLUME 8.8 fl (7.5-11.1); PLATELET COUNT 294 K/MM3 (134-434); RBC 4.23 M/mm3 (4.00-5.60); WHITE BLOOD COUNT 6.4 K/mm3 (4.0-10.0)
[2018-08-28 10:59] LABS: ALBUMIN 3.3 g/dl (3.4-5.0); ALK PHOS 100 U/L (45-117); ANION GAP 6 MMOL/L (8-16); BILIRUBIN,TOTAL 0.6 mg/dL (0.2-1); BLOOD UREA NITROGEN 16 mg/dL (7-18); CALCIUM 8.8 mg/dL (8.5-10.1); CHLORIDE 105 mmol/L (98-107); CO2 27 mmol/L (21-32); CREATININE 1.1 mg/dL (0.55-1.3); GLUCOSE,RANDOM 89 mg/dL (74-106); POTASSIUM 4.3 mmol/L (3.5-5.1); SGOT/AST 10 U/L (15-37); SGPT/ALT 12 U/L (13-61); SODIUM 138 mmol/L (136-145); TOT PROT 6.4 g/dl (6.4-8.2)
--- NOTE | 2018-08-28 13:09 | EKG ---
Test Reason : Blood Pressure : / mmHG Vent. Rate : 061 BPM Atrial Rate : 061 BPM P-R Int : 170 ms QRS Dur : 094 ms QT Int : 418 ms P-R-T Axes : 064 -23 024 degrees QTc Int : 420 ms NORMAL SINUS RHYTHM NORMAL ECG WHEN COMPARED WITH ECG OF 16-SEP-2017 15:05, NO SIGNIFICANT CHANGE WAS FOUND Confirmed by MD KARINA, EMELINA ([id number]) on 08/28/2018 1:09:23 PM Referred By: Confirmed By:EMELINA COLLINS MD
--- NOTE | 2018-08-28 15:10 | PN ---
[facility] CIWA - CIWA Score Nausea/Vomitin-No Nausea/No Vomiting Muscle Tremors: 3 Anxiety: 2 Agitation: 0-Normal Activity Paroxysmal Sweats: 3 Orientation: 0-Oriented Tacttile Disturbances: 2-Mild Itch/Numbness/Burn Auditory Disturbances: 2-Mild Harshness/Frighten Visual Disturbances: 2-Mild Sensitivity Headache: 0-None Present CIWA-Ar Total Score: 14 S COWS - Scale Resting Pulse: 0= [place] 80 or Below Sweatin= Chills/Flushing Restless Observation: 0= Sits Still Pupil Size: 0= Normal to Room Light Bone or Joint Aches: 0= None Runny Nose/ Eye Tearin= Nasal Congestion GI Upset > 30mins: 0= None Tremor Observation of Outstretched Hands: 2= Slight Tremor Visible Yawning Observation: 2= >3x During Session Anxiety or Irritability: 2=Irritable/Anxious Goose Flesh Skin: 3=Piloerection COWS Score: 11 S Progress Note (SOAP) Subjective: Sweating, Tremors, Fatigue, Anxious. Objective: PATIENT A & O X 3. IN NO ACUTE DISTRESS. 08/28/18 15:08 Vital Signs Temperature 98.3 F 08/28/18 13:55 Pulse Rate 58 L 08/28/18 13:55 Respiratory Rate 18 08/28/18 13:55 Blood Pressure 105/66 08/28/18 13:55 O2 Sat by Pulse Oximetry (%) Laboratory Tests 08/28/18 08/28/18 07:50 07:50 WBC 6.4 RBC 4.23 Hgb 12.8 Hct 37.9 MCV 89.6 MCH 30.2 MCHC 33.7 RDW 14.0 Plt Count 294 MPV 8.8 Sodium 138 Potassium 4.3 Chloride 105 Carbon Dioxide 27 Anion Gap 6 L BUN 16 Creatinine 1.1 Creat Clearance w eGFR 74.92 Random Glucose 89 Calcium 8.8 Total Bilirubin 0.6 AST 10 L ALT 12 L Alkaline Phosphatase 100 Total Protein 6.4 Albumin 3.3 L LABS NOTED. Assessment: 08/28/18 15:09 WITHDRAWAL SYMPTOMS. Plan: CONTINUE DETOX.
[2018-08-28] MEDS: chlordiazePOXIDE HCL 10 MG CAPSULE PO PRN (17:28)
[2018-08-28] MEDS: MELATONIN 5 MG TABLETS PO PRN (23:48)
[2018-08-28] MEDS: THIAMINE HCL 100 MG TABLET (FP) PO SCH (23:48)
[2018-08-28] MEDS: chlordiazePOXIDE 5 MG CAPSULE PO SCH (23:48)
[2018-08-29] MEDS: chlordiazePOXIDE 5 MG CAPSULE PO SCH ×2 (05:29→13:43)
[2018-08-29] MEDS ORDERED: METHADONE HCL 10 MG TABLET (FOR DETOX USE ONLY) PO ONE (10:00)
[2018-08-29] MEDS: PRENATAL VITAMINS W/ FOLIC ACID TABLET (FP) PO SCH (10:32)
--- NOTE | 2018-08-29 14:05 | PN ---
[facility] CIWA - CIWA Score Nausea/Vomitin-No Nausea/No Vomiting Muscle Tremors: 3 Anxiety: 1-Mildly Anxious Agitation: 2 Paroxysmal Sweats: 1-Minimal Palms Moist Orientation: 1-Uncertain about Date Tacttile Disturbances: 0-None Auditory Disturbances: 0-None Visual Disturbances: 0-None Headache: 2-Mild CIWA-Ar Total Score: 10 [facility] COWS - Scale Resting Pulse: 0= [place] 80 or Below Sweatin= Chills/Flushing Restless Observation: 0= Sits Still Pupil Size: 0= Normal to Room Light Bone or Joint Aches: 1= Mild Discomfort Runny Nose/ Eye Tearin= Nasal Congestion GI Upset > 30mins: 1= Stomach Cramp Tremor Observation of Outstretched Hands: 1= Tremor [place], Not Seen Yawning Observation: 1= 1-2x During Session Anxiety or Irritability: 1=Feels Anxious/Irritable Goose Flesh Skin: 0=Smooth Skin COWS Score: 7 [facility] Progress Note (SOAP) Subjective: body aches tremor muscle cramping trouble sleep at night sweating Objective: 08/29/18 14:07 Vital Signs Temperature 96.8 F L 08/29/18 13:44 Pulse Rate 60 08/29/18 13:44 Respiratory Rate 18 08/29/18 13:44 Blood Pressure 111/75 08/29/18 13:44 O2 Sat by Pulse Oximetry (%) Laboratory Last Values WBC 6.4 K/mm3 (4.0-10.0) 08/28/18 07:50 RBC 4.23 M/mm3 (4.00-5.60) 08/28/18 07:50 Hgb 12.8 GM/dL (11.7-16.9) 08/28/18 07:50 Hct 37.9 % (35.4-49) 08/28/18 07:50 MCV 89.6 fl (80-96) 08/28/18 07:50 MCH 30.2 pg (25.7-33.7) 08/28/18 07:50 MCHC 33.7 g/dl (32.0-35.9) 08/28/18 07:50 RDW 14.0 % (11.9-15.9) 08/28/18 07:50 Plt Count 294 K/MM3 (134-434) 08/28/18 07:50 MPV 8.8 fl (7.5-11.1) 08/28/18 07:50 Sodium 138 mmol/L (136-145) 08/28/18 07:50 Potassium 4.3 mmol/L (3.5-5.1) 08/28/18 07:50 Chloride 105 mmol/L (98-107) 08/28/18 07:50 Carbon Dioxide 27 mmol/L (21-32) 08/28/18 07:50 Anion Gap 6 MMOL/L (8-16) L 08/28/18 07:50 BUN 16 mg/dL (7-18) 08/28/18 07:50 Creatinine 1.1 mg/dL (0.55-1.3) 08/28/18 07:50 Creat Clearance w eGFR 74.92 (>60) 08/28/18 07:50 Random Glucose 89 mg/dL (74-106) 08/28/18 07:50 Calcium 8.8 mg/dL (8.5-10.1) 08/28/18 07:50 Total Bilirubin 0.6 mg/dL (0.2-1) 08/28/18 07:50 AST 10 U/L (15-37) L 08/28/18 07:50 ALT 12 U/L (13-61) L 08/28/18 07:50 Alkaline Phosphatase 100 U/L (45-117) 08/28/18 07:50 Total Protein 6.4 g/dl (6.4-8.2) 08/28/18 07:50 Albumin 3.3 g/dl (3.4-5.0) L 08/28/18 07:50 lab noted Assessment: 08/29/18 14:07 withdrawal sx Plan: continue detox
[2018-08-29] MEDS ORDERED: chlordiazePOXIDE HCL 10 MG CAPSULE PO PRN (21:00)
[2018-08-29] MEDS: THIAMINE HCL 100 MG TABLET (FP) PO SCH (22:52)
[2018-08-29] MEDS: chlordiazePOXIDE HCL 10 MG CAPSULE PO SCH (22:52)
[2018-08-29] MEDS: MELATONIN 5 MG TABLETS PO PRN (22:52)
[2018-08-30] MEDS: chlordiazePOXIDE HCL 10 MG CAPSULE PO SCH (06:19)
[2018-08-30 09:23] VITALS: BP 113/73; PULSE 58; TEMP 97.1
[2018-08-30] MEDS ORDERED: METHADONE HCL 10 MG TABLET (FOR DETOX USE ONLY) PO ONE (10:00)
[2018-08-30] MEDS: PRENATAL VITAMINS W/ FOLIC ACID TABLET (FP) PO SCH (10:45)
--- NOTE | 2018-08-30 16:03 | DS ---
[facility] Detox Discharge Summary Admission Date: 08/27/18 Discharge Date: 08/30/18 - History Present History: Alcohol Dependence, Opioid Dependence Additional Comments: 37 years male aditted on 08/27/18 for alcohol and opiate withdrawal stabilization completed detox regimen [facility] - Physical Exam Results Vital Signs: Vital Signs Temperature 97.1 F L 08/30/18 09:22 Pulse Rate 58 L 08/30/18 09:22 Respiratory Rate 18 08/30/18 09:22 Blood Pressure 113/73 08/30/18 09:22 O2 Sat by Pulse Oximetry (%) Pertinent Admission Physical Exam Findings: alcohol and opiate withdrawal sx Laboratory Last Values WBC 6.4 K/mm3 (4.0-10.0) 08/28/18 07:50 RBC 4.23 M/mm3 (4.00-5.60) 08/28/18 07:50 Hgb 12.8 GM/dL (11.7-16.9) 08/28/18 07:50 Hct 37.9 % (35.4-49) 08/28/18 07:50 MCV 89.6 fl (80-96) 08/28/18 07:50 MCH 30.2 pg (25.7-33.7) 08/28/18 07:50 MCHC 33.7 g/dl (32.0-35.9) 08/28/18 07:50 RDW 14.0 % (11.9-15.9) 08/28/18 07:50 Plt Count 294 K/MM3 (134-434) 08/28/18 07:50 MPV 8.8 fl (7.5-11.1) 08/28/18 07:50 Sodium 138 mmol/L (136-145) 08/28/18 07:50 Potassium 4.3 mmol/L (3.5-5.1) 08/28/18 07:50 Chloride 105 mmol/L (98-107) 08/28/18 07:50 Carbon Dioxide 27 mmol/L (21-32) 08/28/18 07:50 Anion Gap 6 MMOL/L (8-16) L 08/28/18 07:50 BUN 16 mg/dL (7-18) 08/28/18 07:50 Creatinine 1.1 mg/dL (0.55-1.3) 08/28/18 07:50 Creat Clearance w eGFR 74.92 (>60) 08/28/18 07:50 Random Glucose 89 mg/dL (74-106) 08/28/18 07:50 Calcium 8.8 mg/dL (8.5-10.1) 08/28/18 07:50 Total Bilirubin 0.6 mg/dL (0.2-1) 08/28/18 07:50 AST 10 U/L (15-37) L 08/28/18 07:50 ALT 12 U/L (13-61) L 08/28/18 07:50 Alkaline Phosphatase 100 U/L (45-117) 08/28/18 07:50 Total Protein 6.4 g/dl (6.4-8.2) 08/28/18 07:50 Albumin 3.3 g/dl (3.4-5.0) L 08/28/18 07:50 - Treatment Hospital Course: Detox Protocol Followed, Detoxed Safely, Responded well, Discharged Condition Good, Rehab Referral Accepted Patient has Accepted a [facility] Referral [facility] - Medication Discharge Medications: Ambulatory Orders NK [No Known Home Medication] 08/27/18 - Diagnosis (1) Alcohol dependence with uncomplicated withdrawal Status: Acute (2) Opioid dependence with withdrawal Status: Acute (3) Nicotine dependence Status: Acute Qualifiers: Nicotine product type: cigarettes Substance use status: in withdrawal Qualified Code(s): F17.213 - Nicotine dependence, cigarettes, with withdrawal (4) Substance induced mood disorder Status: Suspected (5) PPD positive Status: Resolved - AMA Did Patient Leave Against Medical Advice: No
[2018-08-31] MEDS ORDERED: METHADONE HCL 5 MG TABLET (FOR DETOX USE ONLY) PO ONE (06:00)
== END 2018-08-30 12:20 | disposition home or self-care (01) | DRG 773 ==
LOC: YASAS 14:32 → Y3N 18:38
PROVIDERS: ADMIT Surgery; ATTEND Surgery
PROC: HZ2ZZZZ Detoxification Services for Substance Abuse Treatment (ICD-10-PCS; principal; 2018-08-27)
DX: F11.23 Opioid dependence with withdrawal (principal); F10.230 Alcohol dependence with withdrawal, uncomplicated; F14.20 Cocaine dependence, uncomplicated; F12.20 Cannabis dependence, uncomplicated; F17.213 Nicotine dependence, cigarettes, with withdrawal; F19.24 Other psychoactive substance dependence with psychoactive substance-induced mood disorder; F31.9 Bipolar disorder, unspecified; R76.11 Nonspecific reaction to tuberculin skin test without active tuberculosis
CPT/HCPCS: 36415; 80053; 85027; 93005; 93010

== ENCOUNTER 2018-09-29 19:23 | Inpatient (IN) | payer OTHER ==
[2018-09-29 19:50] VITALS: BMI 32.8
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
[2018-09-29] MEDS ORDERED: hydrOXYzine PAMOATE 25 MG CAPSULE (FP) PO PRN (20:32)
[2018-09-29] MEDS ORDERED: MAG HYDROX/AL HYDROX/SIMETH 30 ML UNIT-DOSE CUP PO PRN (20:32)
[2018-09-29] MEDS ORDERED: METHOCARBAMOL 500 MG TABLET PO PRN (20:32)
[2018-09-29] MEDS ORDERED: cloNIDine HCL 0.1 MG TABLET PO PRN (20:32)
[2018-09-29] MEDS ORDERED: MENTHOL/PHENOL 1 EACH UD MM PRN (20:32)
[2018-09-29] MEDS ORDERED: ACETAMINOPHEN 325 MG TABLET (FP) PO PRN ×2 (20:32)
[2018-09-29] MEDS ORDERED: BISMUTH SUBSALICYLATE 524 MG/30 ML UD PO PRN (20:32)
[2018-09-29] MEDS ORDERED: MAGNESIUM CITRATE 300 ML BOTTLE PO PRN (20:32)
[2018-09-29] MEDS ORDERED: MAGNESIUM HYDROX 2400MG/30ML ORAL SUSPENSION 30 ML CUP PO PRN (20:32)
[2018-09-29] MEDS ORDERED: IBUPROFEN 400 MG TABLET (FP) PO PRN (20:32)
[2018-09-29] MEDS: THIAMINE HCL 100 MG TABLET (FP) PO SCH (22:00)
[2018-09-29] MEDS: MELATONIN 5 MG TABLETS PO PRN (22:00)
[2018-09-29] MEDS: diazePAM 5 MG TABLET PO SCH (22:01)
[2018-09-29] MEDS ORDERED: METHADONE HCL 10 MG TABLET (FOR DETOX USE ONLY) PO ONE (23:00)
[2018-09-30] MEDS: diazePAM 5 MG TABLET PO SCH ×3 (06:40→22:33)
[2018-09-30] MEDS ORDERED: METHADONE HCL 10 MG TABLET (FOR DETOX USE ONLY) PO ONE (10:00)
[2018-09-30] MEDS: PRENATAL VITAMINS W/ FOLIC ACID TABLET (FP) PO SCH (10:21)
[2018-09-30 10:56] LABS: HEMATOCRIT 39.5 % (35.4-49); HEMOGLOBIN 13.5 GM/dL (11.7-16.9); MCH 30.4 pg (25.7-33.7); MCHC 34.2 g/dl (32.0-35.9); MEAN CELL VOLUME 88.8 fl (80-96); MEAN PLT VOLUME 8.5 fl (7.5-11.1); PLATELET COUNT 338 K/MM3 (134-434); RBC 4.45 M/mm3 (4.00-5.60); RDW 13.7 % (11.9-15.9); WHITE BLOOD COUNT 9.4 K/mm3 (4.0-10.0)
[2018-09-30 12:18] LABS: ALBUMIN 3.1 g/dl (3.4-5.0); ALK PHOS 106 U/L (45-117); ANION GAP 2 MMOL/L (8-16); BILIRUBIN,TOTAL 0.2 mg/dL (0.2-1); BLOOD UREA NITROGEN 12 mg/dL (7-18); CALCIUM 9.1 mg/dL (8.5-10.1); CHLORIDE 105 mmol/L (98-107); CO2 30 mmol/L (21-32); GLUCOSE,RANDOM 81 mg/dL (74-106); POTASSIUM 4.7 mmol/L (3.5-5.1); SGOT/AST 14 U/L (15-37); SGPT/ALT 16 U/L (13-61); SODIUM 137 mmol/L (136-145); TOT PROT 6.7 g/dl (6.4-8.2)
--- NOTE | 2018-09-30 12:30 | PN ---
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
--- NOTE | 2018-09-30 14:33 | PN ---
S CIWA - CIWA Score Nausea/Vomitin-No Nausea/No Vomiting Muscle Tremors: 3 Anxiety: 2 Agitation: 0-Normal Activity Paroxysmal Sweats: 3 Orientation: 0-Oriented Tacttile Disturbances: 2-Mild Itch/Numbness/Burn Auditory Disturbances: 0-None Visual Disturbances: 3-Moderate Sensitivity Headache: 0-None Present CIWA-Ar Total Score: 13 [facility] COWS - Scale Resting Pulse: 0= [place] 80 or Below Sweatin= Chills/Flushing Restless Observation: 1= Difficult to Sit Still Pupil Size: 0= Normal to Room Light Bone or Joint Aches: 2= Severe Diffuse Aches Runny Nose/ Eye Tearin= None GI Upset > 30mins: 3= Vomiting/Diarrhea Tremor Observation of Outstretched Hands: 2= Slight Tremor Visible Yawning Observation: 1= 1-2x During Session Anxiety or Irritability: 2=Irritable/Anxious Goose Flesh Skin: 3=Piloerection COWS Score: 15 [facility] Progress Note (SOAP) Subjective: Vomiting, Diarrhea, Tremors, Body Aches. Objective: PATIENT A & O X 3, OBSERVED AMBULATING ON UNIT. IN NO ACUTE DISTRESS. 09/30/18 14:35 Vital Signs Temperature 98.2 F 09/30/18 14:10 Pulse Rate 67 09/30/18 14:10 Respiratory Rate 18 09/30/18 14:10 Blood Pressure 122/69 09/30/18 14:10 O2 Sat by Pulse Oximetry (%) Laboratory Tests 09/30/18 09/30/18 09/30/18 07:00 07:00 07:00 WBC 9.4 RBC 4.45 Hgb 13.5 Hct 39.5 MCV 88.8 MCH 30.4 MCHC 34.2 RDW 13.7 Plt Count 338 MPV 8.5 Sodium 137 Potassium 4.7 Chloride 105 Carbon Dioxide 30 Anion Gap 2 L BUN 12 Creatinine 1.0 Creat Clearance w eGFR 83.63 Random Glucose 81 Calcium 9.1 Total Bilirubin 0.2 AST 14 L ALT 16 Alkaline Phosphatase 106 Total Protein 6.7 Albumin 3.1 L RPR Titer Nonreactive LABS NOTED. Assessment: 09/30/18 14:36 WITHDRAWAL SYMPTOMS. Plan: CONTINUE DETOX. INCREASE DAILY PO FLUID INTAKE. PRN PEPTO-BISMOL FOR DIARRHEA.
[2018-09-30] MEDS: THIAMINE HCL 100 MG TABLET (FP) PO SCH (22:33)
[2018-10-01] MEDS ORDERED: METHADONE HCL 10 MG TABLET (FOR DETOX USE ONLY) PO ONE (10:00)
[2018-10-01] MEDS: PRENATAL VITAMINS W/ FOLIC ACID TABLET (FP) PO SCH (10:21)
[2018-10-01] MEDS: diazePAM 5 MG TABLET PO SCH ×2 (10:22→22:26)
--- NOTE | 2018-10-01 12:12 | PN ---
[facility] CIWA - CIWA Score Nausea/Vomitin-No Nausea/No Vomiting Muscle Tremors: 1-None Visible, but [place] Anxiety: 0-No Anxiety, at Ease Agitation: 0-Normal Activity Paroxysmal Sweats: No Perspiration Orientation: 0-Oriented Tacttile Disturbances: 0-None Auditory Disturbances: 0-None Visual Disturbances: 0-None Headache: 0-None Present CIWA-Ar Total Score: 1 [facility] COWS - Scale Resting Pulse: 1= SD 81-100 Sweatin= No chills or Flushing Restless Observation: 1= Difficult to Sit Still Pupil Size: 0= Normal to Room Light Bone or Joint Aches: 1= Mild Discomfort Runny Nose/ Eye Tearin= None GI Upset > 30mins: 0= None Tremor Observation of Outstretched Hands: 0= None Yawning Observation: 0= None Anxiety or Irritability: 0= None Goose Flesh Skin: 0=Smooth Skin COWS Score: 3 [facility] Progress Note (SOAP) Subjective: pt states doing well on detox protocols O: Vital Signs - 24 hr 09/30/18 09/30/18 09/30/18 14:10 17:11 21:24 Temperature 98.2 F 98.2 F 98.6 F Pulse Rate 67 68 67 Respiratory 18 18 17 Rate Blood Pressure 122/69 99/67 127/81 10/01/18 10/01/18 10/01/18 00:30 03:30 06:00 Temperature 97.9 F Pulse Rate 65 Respiratory 18 18 18 Rate Blood Pressure 116/56 L 10/01/18 11:14 Temperature 97.9 F Pulse Rate 67 Respiratory 18 Rate Blood Pressure 112/50 L Laboratory Tests 09/30/18 09/30/18 09/30/18 07:00 07:00 07:00 WBC 9.4 RBC 4.45 Hgb 13.5 Hct 39.5 MCV 88.8 MCH 30.4 MCHC 34.2 RDW 13.7 Plt Count 338 MPV 8.5 Sodium 137 Potassium 4.7 Chloride 105 Carbon Dioxide 30 Anion Gap 2 L BUN 12 Creatinine 1.0 Creat Clearance w eGFR 83.63 Random Glucose 81 Calcium 9.1 Total Bilirubin 0.2 AST 14 L ALT 16 Alkaline Phosphatase 106 Total Protein 6.7 Albumin 3.1 L RPR Titer Nonreactive labs WNL VS WNL a/p: continue detox protocols d/w pt MAT methadone/suboxone- pt refused stating he wants to try abstinence
[2018-10-01] MEDS: diazePAM 5 MG TABLET PO PRN (16:55)
[2018-10-01] MEDS: THIAMINE HCL 100 MG TABLET (FP) PO SCH (22:26)
[2018-10-01] MEDS: MELATONIN 5 MG TABLETS PO PRN (22:27)
[2018-10-02] MEDS ORDERED: diazePAM 5 MG TABLET PO SCH (06:00)
[2018-10-02 09:43] VITALS: BP 117/72; PULSE 62; TEMP 97.8
[2018-10-02] MEDS ORDERED: METHADONE HCL 10 MG TABLET (FOR DETOX USE ONLY) PO ONE (10:00)
[2018-10-02] MEDS: PRENATAL VITAMINS W/ FOLIC ACID TABLET (FP) PO SCH (10:17)
[2018-10-02] MEDS: diazePAM 5 MG TABLET PO PRN (10:21)
--- NOTE | 2018-10-02 11:12 | PN ---
S CIWA - CIWA Score Muscle Tremors: 1-None Visible, but [place] Anxiety: 0-No Anxiety, at Ease Agitation: 0-Normal Activity Paroxysmal Sweats: No Perspiration Orientation: 0-Oriented Tacttile Disturbances: 0-None Auditory Disturbances: 0-None Headache: 1-Very Mild [facility] COWS - Scale Resting Pulse: 0= [place] 80 or Below Sweatin= No chills or Flushing Restless Observation: 0= Sits Still Pupil Size: 0= Normal to Room Light Bone or Joint Aches: 0= None Runny Nose/ Eye Tearin= None GI Upset > 30mins: 0= None Tremor Observation of Outstretched Hands: 1= Tremor [place], Not Seen Yawning Observation: 0= None Anxiety or Irritability: 0= None Goose Flesh Skin: 0=Smooth Skin COWS Score: 1 S Progress Note (SOAP) Subjective: Very mild headache interrupted sleep Objective: 10/02/18 11:19 Laboratory Last Values WBC 9.4 K/mm3 (4.0-10.0) 09/30/18 07:00 RBC 4.45 M/mm3 (4.00-5.60) 09/30/18 07:00 Hgb 13.5 GM/dL (11.7-16.9) 09/30/18 07:00 Hct 39.5 % (35.4-49) 09/30/18 07:00 MCV 88.8 fl (80-96) 09/30/18 07:00 MCH 30.4 pg (25.7-33.7) 09/30/18 07:00 MCHC 34.2 g/dl (32.0-35.9) 09/30/18 07:00 RDW 13.7 % (11.9-15.9) 09/30/18 07:00 Plt Count 338 K/MM3 (134-434) 09/30/18 07:00 MPV 8.5 fl (7.5-11.1) 09/30/18 07:00 Sodium 137 mmol/L (136-145) 09/30/18 07:00 Potassium 4.7 mmol/L (3.5-5.1) 09/30/18 07:00 Chloride 105 mmol/L (98-107) 09/30/18 07:00 Carbon Dioxide 30 mmol/L (21-32) 09/30/18 07:00 Anion Gap 2 MMOL/L (8-16) L 09/30/18 07:00 BUN 12 mg/dL (7-18) 09/30/18 07:00 Creatinine 1.0 mg/dL (0.55-1.3) 09/30/18 07:00 Creat Clearance w eGFR 83.63 (>60) 09/30/18 07:00 Random Glucose 81 mg/dL (74-106) 09/30/18 07:00 Calcium 9.1 mg/dL (8.5-10.1) 09/30/18 07:00 Total Bilirubin 0.2 mg/dL (0.2-1) 09/30/18 07:00 AST 14 U/L (15-37) L 09/30/18 07:00 ALT 16 U/L (13-61) 09/30/18 07:00 Alkaline Phosphatase 106 U/L (45-117) 09/30/18 07:00 Total Protein 6.7 g/dl (6.4-8.2) 09/30/18 07:00 Albumin 3.1 g/dl (3.4-5.0) L 09/30/18 07:00 RPR Titer Nonreactive (NONREACTIVE) 09/30/18 07:00 Laboratory Last Values WBC 9.4 K/mm3 (4.0-10.0) 09/30/18 07:00 RBC 4.45 M/mm3 (4.00-5.60) 09/30/18 07:00 Hgb 13.5 GM/dL (11.7-16.9) 09/30/18 07:00 Hct 39.5 % (35.4-49) 09/30/18 07:00 MCV 88.8 fl (80-96) 09/30/18 07:00 MCH 30.4 pg (25.7-33.7) 09/30/18 07:00 MCHC 34.2 g/dl (32.0-35.9) 09/30/18 07:00 RDW 13.7 % (11.9-15.9) 09/30/18 07:00 Plt Count 338 K/MM3 (134-434) 09/30/18 07:00 MPV 8.5 fl (7.5-11.1) 09/30/18 07:00 Sodium 137 mmol/L (136-145) 09/30/18 07:00 Potassium 4.7 mmol/L (3.5-5.1) 09/30/18 07:00 Chloride 105 mmol/L (98-107) 09/30/18 07:00 Carbon Dioxide 30 mmol/L (21-32) 09/30/18 07:00 Anion Gap 2 MMOL/L (8-16) L 09/30/18 07:00 BUN 12 mg/dL (7-18) 09/30/18 07:00 Creatinine 1.0 mg/dL (0.55-1.3) 09/30/18 07:00 Creat Clearance w eGFR 83.63 (>60) 09/30/18 07:00 Random Glucose 81 mg/dL (74-106) 09/30/18 07:00 Calcium 9.1 mg/dL (8.5-10.1) 09/30/18 07:00 Total Bilirubin 0.2 mg/dL (0.2-1) 09/30/18 07:00 AST 14 U/L (15-37) L 09/30/18 07:00 ALT 16 U/L (13-61) 09/30/18 07:00 Alkaline Phosphatase 106 U/L (45-117) 09/30/18 07:00 Total Protein 6.7 g/dl (6.4-8.2) 09/30/18 07:00 Albumin 3.1 g/dl (3.4-5.0) L 09/30/18 07:00 RPR Titer Nonreactive (NONREACTIVE) 09/30/18 07:00 Vital Signs 10/02/18 10/02/18 10/02/18 03:30 06:00 09:42 Temperature 97.7 F 97.8 F Pulse Rate 59 L 62 Respiratory 18 18 18 Rate Blood Pressure 136/71 117/72 Labs reviewed Assessment: 10/02/18 11:20 AOX3, in no respiratory distress EENT: WNL Full ROM Ambulating in the unit. No withdrawal signs noted 10/02/18 11:23 Plan: Continue detox increase fluids continue to monitor
--- NOTE | 2018-10-02 11:31 | DS ---
[facility] Detox Discharge Summary Admission Date: 09/29/18 Discharge Date: 10/02/18 - History Present History: Opioid Dependence, Sedative Dependence Additional Comments: Pt continue to be motivated to further tx at [facility]. Pt was encouraged to attend 12 step mtgs. Pt was given mtg list book for 12 step mtgs in his area. Pt denies any withdrawal symptoms. Pt is stable for discharge. Pertinent Past History: Benzos/heroin dependence - Physical Exam Results Vital Signs: Vital Signs Temperature 97.8 F 10/02/18 09:42 Pulse Rate 62 10/02/18 09:42 Respiratory Rate 18 10/02/18 09:42 Blood Pressure 117/72 10/02/18 09:42 O2 Sat by Pulse Oximetry (%) Laboratory Last Values WBC 9.4 K/mm3 (4.0-10.0) 09/30/18 07:00 RBC 4.45 M/mm3 (4.00-5.60) 09/30/18 07:00 Hgb 13.5 GM/dL (11.7-16.9) 09/30/18 07:00 Hct 39.5 % (35.4-49) 09/30/18 07:00 MCV 88.8 fl (80-96) 09/30/18 07:00 MCH 30.4 pg (25.7-33.7) 09/30/18 07:00 MCHC 34.2 g/dl (32.0-35.9) 09/30/18 07:00 RDW 13.7 % (11.9-15.9) 09/30/18 07:00 Plt Count 338 K/MM3 (134-434) 09/30/18 07:00 MPV 8.5 fl (7.5-11.1) 09/30/18 07:00 Sodium 137 mmol/L (136-145) 09/30/18 07:00 Potassium 4.7 mmol/L (3.5-5.1) 09/30/18 07:00 Chloride 105 mmol/L (98-107) 09/30/18 07:00 Carbon Dioxide 30 mmol/L (21-32) 09/30/18 07:00 Anion Gap 2 MMOL/L (8-16) L 09/30/18 07:00 BUN 12 mg/dL (7-18) 09/30/18 07:00 Creatinine 1.0 mg/dL (0.55-1.3) 09/30/18 07:00 Creat Clearance w eGFR 83.63 (>60) 09/30/18 07:00 Random Glucose 81 mg/dL (74-106) 09/30/18 07:00 Calcium 9.1 mg/dL (8.5-10.1) 09/30/18 07:00 Total Bilirubin 0.2 mg/dL (0.2-1) 09/30/18 07:00 AST 14 U/L (15-37) L 09/30/18 07:00 ALT 16 U/L (13-61) 09/30/18 07:00 Alkaline Phosphatase 106 U/L (45-117) 09/30/18 07:00 Total Protein 6.7 g/dl (6.4-8.2) 09/30/18 07:00 Albumin 3.1 g/dl (3.4-5.0) L 09/30/18 07:00 RPR Titer Nonreactive (NONREACTIVE) 09/30/18 07:00 labs reviewed Pertinent Admission Physical Exam Findings: withdrawal symptoms - Treatment Hospital Course: Detox Protocol Followed, Detoxed Safely, Responded well (Pt has one more day to complete detox protocol. Pt requested to be discharge and states he feels better.), Discharged Condition Good - Medication Discharge Medications: Ambulatory Orders NK [No Known Home Medication] 08/27/18 - Diagnosis (1) Anxiety Current Visit: Yes Status: Chronic (2) Depression Current Visit: Yes Status: Chronic Qualifiers: Depression Type: unspecified Qualified Code(s): F32.9 - Major depressive disorder, single episode, unspecified (3) Opioid dependence with withdrawal Current Visit: Yes Status: Acute (4) Sedative, hypnotic or anxiolytic dependence with withdrawal, uncomplicated Current Visit: Yes Status: Acute (5) Bipolar II disorder Current Visit: No Status: Suspected (6) Substance induced mood disorder Current Visit: No Status: Suspected (7) Substance-induced sleep disorder Current Visit: No Status: Suspected - AMA Did Patient Leave Against Medical Advice: No
[2018-10-03] MEDS ORDERED: METHADONE HCL 5 MG TABLET (FOR DETOX USE ONLY) PO ONE (06:00)
== END 2018-10-02 11:11 | disposition home or self-care (01) | DRG 773 ==
LOC: YASAS 19:23 → Y6N 21:27
PROVIDERS: ADMIT Surgery; ATTEND Surgery
PROC: HZ2ZZZZ Detoxification Services for Substance Abuse Treatment (ICD-10-PCS; principal; 2018-09-29)
DX: F11.23 Opioid dependence with withdrawal (principal); F13.230 Sedative, hypnotic or anxiolytic dependence with withdrawal, uncomplicated; F41.9 Anxiety disorder, unspecified; F32.9 Major depressive disorder, single episode, unspecified; F31.81 Bipolar II disorder; F19.24 Other psychoactive substance dependence with psychoactive substance-induced mood disorder; F19.282 Other psychoactive substance dependence with psychoactive substance-induced sleep disorder; M17.0 Bilateral primary osteoarthritis of knee; R76.11 Nonspecific reaction to tuberculin skin test without active tuberculosis; Z87.891 Personal history of nicotine dependence
CPT/HCPCS: 36415; 71046-TC-FY; 80053; 85027; 86593

== ENCOUNTER 2018-12-26 15:29 | Inpatient (IN) | payer OTHER ==
[2018-12-26 16:31] VITALS: BMI 29.6
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
[2018-12-26] MEDS ORDERED: ACETAMINOPHEN 325 MG TABLET (FP) PO PRN ×2 (17:02)
[2018-12-26] MEDS ORDERED: IBUPROFEN 400 MG TABLET (FP) PO PRN (17:02)
[2018-12-26] MEDS ORDERED: MAGNESIUM CITRATE 300 ML BOTTLE PO PRN (17:02)
[2018-12-26] MEDS ORDERED: METHOCARBAMOL 500 MG TABLET PO PRN (17:02)
[2018-12-26] MEDS ORDERED: hydrOXYzine PAMOATE 25 MG CAPSULE (FP) PO PRN (17:02)
[2018-12-26] MEDS ORDERED: MENTHOL/PHENOL 1 EACH UD MM PRN (17:02)
[2018-12-26] MEDS ORDERED: MELATONIN 5 MG TABLETS PO PRN (17:02)
[2018-12-26] MEDS ORDERED: BISMUTH SUBSALICYLATE 524 MG/30 ML UD PO PRN (17:02)
[2018-12-26] MEDS ORDERED: MAGNESIUM HYDROX 2400MG/30ML ORAL SUSPENSION 30 ML CUP PO PRN (17:02)
[2018-12-26] MEDS ORDERED: MAG HYDROX/AL HYDROX/SIMETH 30 ML UNIT-DOSE CUP PO PRN (17:02)
[2018-12-26] MEDS ORDERED: METHADONE HCL 10 MG TABLET (FOR DETOX USE ONLY) PO ONE (17:03)
[2018-12-26] MEDS ORDERED: cloNIDine HCL 0.1 MG TABLET PO PRN (17:03)
[2018-12-26] MEDS ORDERED: THIAMINE HCL 100 MG TABLET (FP) PO SCH (22:00)
[2018-12-27] MEDS ORDERED: METHADONE HCL 10 MG TABLET (FOR DETOX USE ONLY) ONE (09:43)
[2018-12-27] MEDS ORDERED: METHADONE HCL 5 MG TABLET (FOR DETOX USE ONLY) ONE (09:43)
[2018-12-27] MEDS ORDERED: PRENATAL VITAMINS W/ FOLIC ACID TABLET (FP) PO SCH (10:00)
[2018-12-27] MEDS ORDERED: METHADONE (DETOX) 20 MG, METHADONE (DETOX) 5 MG PO ONE (10:00)
[2018-12-27 10:41] LABS: HEMATOCRIT 39.1 % (35.4-49); HEMOGLOBIN 13.2 GM/dL (11.7-16.9); MCH 29.8 pg (25.7-33.7); MCHC 33.9 g/dl (32.0-35.9); MEAN CELL VOLUME 87.8 fl (80-96); PLATELET COUNT 274 K/MM3 (134-434); RBC 4.45 M/mm3 (4.00-5.60); RDW 13.8 % (11.9-15.9); WHITE BLOOD COUNT 6.9 K/mm3 (4.0-10.0)
[2018-12-27 10:54] LABS: ALBUMIN 3.5 g/dl (3.4-5.0); BILIRUBIN,TOTAL 0.5 mg/dL (0.2-1); BLOOD UREA NITROGEN 10.1 mg/dL (7-18); CALCIUM 9.1 mg/dL (8.5-10.1); CREATININE 1.1 mg/dL (0.55-1.3); POTASSIUM 4.2 mmol/L (3.5-5.1); TOT PROT 6.4 g/dl (6.4-8.2)
--- NOTE | 2018-12-27 12:01 | PN ---
[facility] COWS - Scale Resting Pulse: 0= [place] 80 or Below Sweatin= Chills/Flushing Restless Observation: 1= Difficult to Sit Still Pupil Size: 0= Normal to Room Light Bone or Joint Aches: 2= Severe Diffuse Aches Runny Nose/ Eye Tearin= Nasal Congestion GI Upset > 30mins: 0= None Tremor Observation of Outstretched Hands: 0= None Yawning Observation: 1= 1-2x During Session Anxiety or Irritability: 2=Irritable/Anxious Goose Flesh Skin: 3=[place]il[place] COWS Score: 11 [facility] Progress Note (SOAP) Subjective: Body Aches, Anxious, Interrupted Sleep, Nasal Congestion. Objective: PATIENT A & O X 3. IN NO ACUTE DISTRESS. 12/27/18 12:03 Vital Signs Temperature 97.7 F 12/27/18 09:04 Pulse Rate 59 L 12/27/18 09:04 Respiratory Rate 16 12/27/18 09:04 Blood Pressure 98/56 L 12/27/18 09:04 O2 Sat by Pulse Oximetry (%) Laboratory Tests 12/27/18 12/27/18 12/27/18 07:00 07:00 07:00 WBC 6.9 RBC 4.45 Hgb 13.2 Hct 39.1 MCV 87.8 MCH 29.8 MCHC 33.9 RDW 13.8 Plt Count 274 MPV 9.0 Sodium 140 Potassium 4.2 Chloride 107 Carbon Dioxide 30 Anion Gap 2 L BUN 10.1 Creatinine 1.1 Est GFR (CKD-EPI)AfAm 97.49 Est GFR (CKD-EPI)NonAf 84.12 Random Glucose 86 Calcium 9.1 Total Bilirubin 0.5 AST 10 L ALT 16 Alkaline Phosphatase 102 Total Protein 6.4 Albumin 3.5 RPR Titer Nonreactive LABS NOTED. HIV AB RESULT PENDING. 12/27/18 12:03 Assessment: 12/27/18 12:03 WITHDRAWAL SYMPTOMS. Plan: CONTINUE DETOX.
--- NOTE | 2018-12-27 19:59 | DS ---
[facility] Detox Discharge Summary Admission Date: 12/26/18 Discharge Date: 12/27/18 - History Present History: Opioid Dependence Pertinent Past History: pt states that he needs to leave- that he is still in withdrawal. Pt did not want to discuss symptomatic treatment. d/w pt treatment options with our methadone or suboxone program. Phone contact info given. - Physical Exam Results Vital Signs: Vital Signs Temperature 97.9 F 12/27/18 17:26 Pulse Rate 54 L 12/27/18 17:26 Respiratory Rate 16 12/27/18 17:26 Blood Pressure 113/58 L 12/27/18 17:26 O2 Sat by Pulse Oximetry (%) - Medication Discharge Medications: Ambulatory Orders NK [No Known Home Medication] 08/27/18 - AMA Did Patient Leave Against Medical Advice: Yes
[2018-12-27 20:53] VITALS: BP 124/74; PULSE 63; TEMP 98.6
[2018-12-28] MEDS ORDERED: METHADONE HCL 10 MG TABLET (FOR DETOX USE ONLY) PO ONE (10:00)
[2018-12-29] MEDS ORDERED: METHADONE (DETOX) 10 MG, METHADONE (DETOX) 5 MG PO ONE (10:00)
[2018-12-30] MEDS ORDERED: METHADONE HCL 10 MG TABLET (FOR DETOX USE ONLY) PO ONE (10:00)
[2018-12-31] MEDS ORDERED: METHADONE HCL 5 MG TABLET (FOR DETOX USE ONLY) PO ONE (06:00)
== END 2018-12-27 19:40 | disposition left against medical advice (07) | DRG 770 ==
LOC: YASAS 15:29 → Y6N 17:22
PROVIDERS: ADMIT Surgery; ATTEND Surgery
PROC: HZ2ZZZZ Detoxification Services for Substance Abuse Treatment (ICD-10-PCS; principal; 2018-12-26)
DX: F11.23 Opioid dependence with withdrawal (principal); F10.230 Alcohol dependence with withdrawal, uncomplicated; F13.20 Sedative, hypnotic or anxiolytic dependence, uncomplicated; F14.20 Cocaine dependence, uncomplicated; F12.20 Cannabis dependence, uncomplicated; F41.1 Generalized anxiety disorder; F43.10 Post-traumatic stress disorder, unspecified; F31.9 Bipolar disorder, unspecified; F32.9 Major depressive disorder, single episode, unspecified; Z87.891 Personal history of nicotine dependence
CPT/HCPCS: 36415; 80053; 85027; 86593; 87389; J0735

== ENCOUNTER 2019-05-02 11:27 | Inpatient (IN) | payer OTHER ==
[2019-05-02 12:44] VITALS: BMI 29.7
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
--- NOTE | 2019-05-02 13:48 | PN ---
Teaching Attending Note Name of Resident: Marie Denson ATTENDING PHYSICIAN STATEMENT I saw and evaluated the patient. I reviewed the resident's note and discussed the case with the resident. I agree with the resident's findings and plan as documented. SUBJECTIVE: 38 yo with h/o OUD was last here for opioid detox in 12/2018. Says he uses 2-3 bags/day- sniffing. says he also uses alcohol a pint of vodka a day. Also uses xanax- 2mg once or twice a week OBJECTIVE: Vital Signs - 24 hr 05/02/19 12:40 Temperature 98.0 F Pulse Rate 61 Respiratory 20 Rate Blood Pressure 126/82 ASSESSMENT AND PLAN: OUD- heroin detox AUD- alcohol detox with ativan
[2019-05-02] MEDS ORDERED: IBUPROFEN 400 MG TABLET (FP) PO PRN (14:02)
[2019-05-02] MEDS ORDERED: MAGNESIUM CITRATE 300 ML BOTTLE PO PRN (14:02)
[2019-05-02] MEDS ORDERED: LORazepam 1 MG TABLET PO PRN (14:02)
[2019-05-02] MEDS ORDERED: cloNIDine HCL 0.1 MG TABLET PO PRN (14:02)
[2019-05-02] MEDS ORDERED: MENTHOL/PHENOL 1 EACH UD MM PRN (14:02)
[2019-05-02] MEDS ORDERED: MELATONIN 5 MG TABLETS PO PRN (14:02)
[2019-05-02] MEDS ORDERED: hydrOXYzine PAMOATE 25 MG CAPSULE (FP) PO PRN (14:02)
[2019-05-02] MEDS ORDERED: MAGNESIUM HYDROX 2400MG/30ML ORAL SUSPENSION 30 ML CUP PO PRN (14:02)
[2019-05-02] MEDS ORDERED: ACETAMINOPHEN 325 MG TABLET (FP) PO PRN ×2 (14:02)
[2019-05-02] MEDS ORDERED: BISMUTH SUBSALICYLATE 262 MG/15 ML BTL PO PRN (14:02)
[2019-05-02] MEDS ORDERED: MAG HYDROX/AL HYDROX/SIMETH 30 ML UNIT-DOSE CUP PO PRN (14:02)
[2019-05-02] MEDS ORDERED: METHADONE HCL 10 MG TABLET (FOR DETOX USE ONLY) PO ONE (14:30)
[2019-05-02] MEDS: LORazepam 2 MG TABLET PO SCH ×2 (17:21→22:15)
[2019-05-02] MEDS: THIAMINE HCL 100 MG TABLET (FP) PO SCH (22:15)
[2019-05-02] MEDS: METHOCARBAMOL 500 MG TABLET PO PRN (22:15)
[2019-05-03] MEDS: LORazepam 2 MG TABLET PO SCH ×2 (06:30→10:27)
[2019-05-03] MEDS ORDERED: METHADONE HCL 5 MG TABLET (FOR DETOX USE ONLY) ONE (09:51)
[2019-05-03] MEDS ORDERED: METHADONE HCL 10 MG TABLET (FOR DETOX USE ONLY) ONE (09:51)
[2019-05-03 09:52] LABS: HEMOGLOBIN 13.8 GM/dL (11.7-16.9); MCH 29.9 pg (25.7-33.7); MCHC 32.9 g/dl (32.0-35.9); MEAN CELL VOLUME 91.1 fl (80-96); MEAN PLT VOLUME 9.2 fl (7.5-11.1); PLATELET COUNT 316 K/MM3 (134-434); RBC 4.62 M/mm3 (4.00-5.60); WHITE BLOOD COUNT 6.9 K/mm3 (4.0-10.0)
[2019-05-03] MEDS ORDERED: METHADONE (DETOX) 20 MG, METHADONE (DETOX) 5 MG PO ONE (10:00)
[2019-05-03 10:25] LABS: ALBUMIN 3.4 g/dl (3.4-5.0); BILIRUBIN,TOTAL 0.5 mg/dL (0.2-1); BLOOD UREA NITROGEN 13.1 mg/dL (7-18); CALCIUM 9.5 mg/dL (8.5-10.1); CREATININE 0.9 mg/dL (0.55-1.3); POTASSIUM 4.1 mmol/L (3.5-5.1); TOT PROT 6.9 g/dl (6.4-8.2)
[2019-05-03] MEDS: METHOCARBAMOL 500 MG TABLET PO PRN (10:27)
[2019-05-03] MEDS: PRENATAL VITAMINS W/ FOLIC ACID TABLET (FP) PO SCH (10:27)
[2019-05-03] MEDS ORDERED: diazePAM 5 MG TABLET PO PRN (15:03)
--- NOTE | 2019-05-03 15:09 | PN ---
S CIWA - CIWA Score Nausea/Vomitin-Mild Nausea/No Vomiting Muscle Tremors: 3 Anxiety: 3 Agitation: 2 Paroxysmal Sweats: 2 Orientation: 0-Oriented Tacttile Disturbances: 1-Very Mild Itch/Numbness Auditory Disturbances: 0-None Visual Disturbances: 0-None Headache: 0-None Present CIWA-Ar Total Score: 12 BHS COWS - Scale Resting Pulse: 0= [place] 80 or Below Sweatin= Chills/Flushing Restless Observation: 0= Sits Still Pupil Size: 1= Pupils >than Normal Bone or Joint Aches: 0= None Runny Nose/ Eye Tearin= Nasal Congestion GI Upset > 30mins: 2= Nausea/Diarrhea (no diarrhea) Tremor Observation of Outstretched Hands: 2= Slight Tremor Visible Yawning Observation: 0= None Anxiety or Irritability: 2=Irritable/Anxious Goose Flesh Skin: 3=Piloerection COWS Score: 12 S Progress Note (SOAP) Subjective: 38 years old male admitted on 05/02/19 for alcohol benzo opiate withdrawal sx management treated with ativan and methadone detox regimen patient requests valium detox regimen that ativan does not work well with him tremor anxiety restlessness irritable discontinue ativan detox regimen begin valium detox regimen Objective: 05/03/19 15:07 Vital Signs Temperature 97.1 F L 05/03/19 09:13 Pulse Rate 65 05/03/19 09:13 Respiratory Rate 16 05/03/19 09:13 Blood Pressure 124/76 05/03/19 09:13 O2 Sat by Pulse Oximetry (%) Laboratory Last Values WBC 6.9 K/mm3 (4.0-10.0) 05/03/19 08:00 RBC 4.62 M/mm3 (4.00-5.60) 05/03/19 08:00 Hgb 13.8 GM/dL (11.7-16.9) 05/03/19 08:00 Hct 42.0 % (35.4-49) 05/03/19 08:00 MCV 91.1 fl (80-96) 05/03/19 08:00 MCH 29.9 pg (25.7-33.7) 05/03/19 08:00 MCHC 32.9 g/dl (32.0-35.9) 05/03/19 08:00 RDW 14.0 % (11.9-15.9) 05/03/19 08:00 Plt Count 316 K/MM3 (134-434) 05/03/19 08:00 MPV 9.2 fl (7.5-11.1) 05/03/19 08:00 Sodium 139 mmol/L (136-145) 05/03/19 08:00 Potassium 4.1 mmol/L (3.5-5.1) 05/03/19 08:00 Chloride 106 mmol/L (98-107) 05/03/19 08:00 Carbon Dioxide 27 mmol/L (21-32) 05/03/19 08:00 Anion Gap 6 MMOL/L (8-16) L 05/03/19 08:00 BUN 13.1 mg/dL (7-18) 05/03/19 08:00 Creatinine 0.9 mg/dL (0.55-1.3) 05/03/19 08:00 Est GFR (CKD-EPI)AfAm 124.26 05/03/19 08:00 Est GFR (CKD-EPI)NonAf 107.21 05/03/19 08:00 Random Glucose 88 mg/dL (74-106) 05/03/19 08:00 Calcium 9.5 mg/dL (8.5-10.1) 05/03/19 08:00 Total Bilirubin 0.5 mg/dL (0.2-1) 05/03/19 08:00 AST 13 U/L (15-37) L 05/03/19 08:00 ALT 18 U/L (13-61) 05/03/19 08:00 Alkaline Phosphatase 101 U/L (45-117) 05/03/19 08:00 Total Protein 6.9 g/dl (6.4-8.2) 05/03/19 08:00 Albumin 3.4 g/dl (3.4-5.0) 05/03/19 08:00 RPR Titer Nonreactive (NONREACTIVE) 05/03/19 08:00 HIV 1&2 Antibody Screen Negative 05/03/19 08:00 HIV P24 Antigen Negative 05/03/19 08:00 lab noted Assessment: 05/03/19 15:08 alcohol benzo opiate withdrawal sx Plan: continue valium and methadone detox regimen
[2019-05-03] MEDS: THIAMINE HCL 100 MG TABLET (FP) PO SCH (22:20)
[2019-05-03] MEDS: diazePAM 5 MG TABLET PO SCH (22:20)
[2019-05-04] MEDS ORDERED: LORazepam 1 MG TABLET PO SCH (05:00)
[2019-05-04] MEDS: diazePAM 5 MG TABLET PO SCH (06:35)
[2019-05-04 09:16] VITALS: BP 111/68; PULSE 73; TEMP 97.2
[2019-05-04] MEDS: PRENATAL VITAMINS W/ FOLIC ACID TABLET (FP) PO SCH (09:28)
[2019-05-04] MEDS ORDERED: METHADONE HCL 10 MG TABLET (FOR DETOX USE ONLY) PO ONE (10:00)
--- NOTE | 2019-05-04 13:39 | DS ---
[facility] Detox Discharge Summary Admission Date: 05/02/19 Discharge Date: 05/04/19 - History Present History: Alcohol Dependence, Opioid Dependence, Sedative Dependence Additional Comments: 38 years old male admitted on 05/02/19 for alcohol benzo and opiate withdrawal sx management treated with ativan and methadone detox regimen patient insists to leave the detox unit that "I have court date" case discuss with nurse and counselor that against medical advice is appropriate discharge status patient refuses ciwa cows patient refuses exist discharge physical examination patient is alert oriented x 3 speech clearly coherently - Physical Exam Results Vital Signs: Vital Signs Temperature 97.2 F L 05/04/19 09:15 Pulse Rate 73 05/04/19 09:15 Respiratory Rate 18 05/04/19 09:15 Blood Pressure 111/68 05/04/19 09:15 O2 Sat by Pulse Oximetry (%) Pertinent Admission Physical Exam Findings: alcohol benzo opiate withdrawal sx Laboratory Last Values WBC 6.9 K/mm3 (4.0-10.0) 05/03/19 08:00 RBC 4.62 M/mm3 (4.00-5.60) 05/03/19 08:00 Hgb 13.8 GM/dL (11.7-16.9) 05/03/19 08:00 Hct 42.0 % (35.4-49) 05/03/19 08:00 MCV 91.1 fl (80-96) 05/03/19 08:00 MCH 29.9 pg (25.7-33.7) 05/03/19 08:00 MCHC 32.9 g/dl (32.0-35.9) 05/03/19 08:00 RDW 14.0 % (11.9-15.9) 05/03/19 08:00 Plt Count 316 K/MM3 (134-434) 05/03/19 08:00 MPV 9.2 fl (7.5-11.1) 05/03/19 08:00 Sodium 139 mmol/L (136-145) 05/03/19 08:00 Potassium 4.1 mmol/L (3.5-5.1) 05/03/19 08:00 Chloride 106 mmol/L (98-107) 05/03/19 08:00 Carbon Dioxide 27 mmol/L (21-32) 05/03/19 08:00 Anion Gap 6 MMOL/L (8-16) L 05/03/19 08:00 BUN 13.1 mg/dL (7-18) 05/03/19 08:00 Creatinine 0.9 mg/dL (0.55-1.3) 05/03/19 08:00 Est GFR (CKD-EPI)AfAm 124.26 05/03/19 08:00 Est GFR (CKD-EPI)NonAf 107.21 05/03/19 08:00 Random Glucose 88 mg/dL (74-106) 05/03/19 08:00 Calcium 9.5 mg/dL (8.5-10.1) 05/03/19 08:00 Total Bilirubin 0.5 mg/dL (0.2-1) 05/03/19 08:00 AST 13 U/L (15-37) L 05/03/19 08:00 ALT 18 U/L (13-61) 05/03/19 08:00 Alkaline Phosphatase 101 U/L (45-117) 05/03/19 08:00 Total Protein 6.9 g/dl (6.4-8.2) 05/03/19 08:00 Albumin 3.4 g/dl (3.4-5.0) 05/03/19 08:00 RPR Titer Nonreactive (NONREACTIVE) 05/03/19 08:00 HIV 1&2 Antibody Screen Negative 05/03/19 08:00 HIV P24 Antigen Negative 05/03/19 08:00 lab noted - Treatment Hospital Course: Detox Protocol Followed, Responded well Patient has Accepted a Rehab Referral to: new focus - Medication Discharge Medications: Ambulatory Orders NK [No Known Home Medication] 08/27/18 - Diagnosis (1) Alcohol dependence with uncomplicated withdrawal Status: Acute (2) Nicotine dependence Status: Acute Qualifiers: Nicotine product type: cigarettes Substance use status: in withdrawal Qualified Code(s): F17.213 - Nicotine dependence, cigarettes, with withdrawal (3) Opioid dependence with withdrawal Status: Acute (4) Sedative, hypnotic or anxiolytic dependence with withdrawal, uncomplicated Status: Acute (5) PPD positive Status: Resolved (6) Substance induced mood disorder Status: Suspected - AMA Did Patient Leave Against Medical Advice: Yes
[2019-05-05] MEDS ORDERED: LORazepam 0.5 MG TABLET PO PRN
[2019-05-05] MEDS ORDERED: LORazepam 0.5 MG TABLET PO SCH (05:00)
[2019-05-05] MEDS ORDERED: diazePAM 5 MG TABLET PO SCH (06:00)
[2019-05-05] MEDS ORDERED: METHADONE (DETOX) 10 MG, METHADONE (DETOX) 5 MG PO ONE (10:00)
[2019-05-06] MEDS ORDERED: LORazepam 0.5 MG TABLET PO ONE (05:00)
[2019-05-06] MEDS ORDERED: diazePAM 5 MG TABLET PO ONE (06:00)
[2019-05-06] MEDS ORDERED: METHADONE HCL 10 MG TABLET (FOR DETOX USE ONLY) PO ONE (10:00)
[2019-05-07] MEDS ORDERED: METHADONE HCL 5 MG TABLET (FOR DETOX USE ONLY) PO ONE (06:00)
== END 2019-05-04 10:55 | disposition left against medical advice (07) | DRG 770 ==
LOC: YASAS 11:27 → Y3N 14:21
PROVIDERS: ADMIT Allergy & Immunology; ATTEND Allergy & Immunology
PROC: HZ2ZZZZ Detoxification Services for Substance Abuse Treatment (ICD-10-PCS; principal; 2019-05-02)
DX: F10.230 Alcohol dependence with withdrawal, uncomplicated (principal); F11.23 Opioid dependence with withdrawal; F13.230 Sedative, hypnotic or anxiolytic dependence with withdrawal, uncomplicated; F12.20 Cannabis dependence, uncomplicated; F31.9 Bipolar disorder, unspecified; F19.24 Other psychoactive substance dependence with psychoactive substance-induced mood disorder; R76.11 Nonspecific reaction to tuberculin skin test without active tuberculosis; Z87.891 Personal history of nicotine dependence
CPT/HCPCS: 36415; 80053; 85027; 86593; 87389

== ENCOUNTER 2019-07-26 09:42 | Inpatient (IN) | payer OTHER ==
[2019-07-26 10:03] VITALS: BMI 29.1
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
[2019-07-26] MEDS ORDERED: BISMUTH SUBSALICYLATE 262 MG/15 ML BTL PO PRN (10:35)
[2019-07-26] MEDS ORDERED: MAGNESIUM CITRATE 300 ML BOTTLE PO PRN (10:35)
[2019-07-26] MEDS ORDERED: MAG HYDROX/AL HYDROX/SIMETH 30 ML UNIT-DOSE CUP PO PRN (10:35)
[2019-07-26] MEDS ORDERED: MENTHOL/PHENOL 1 EACH UD MM PRN (10:35)
[2019-07-26] MEDS ORDERED: IBUPROFEN 400 MG TABLET (FP) PO PRN (10:35)
[2019-07-26] MEDS ORDERED: cloNIDine HCL 0.1 MG TABLET PO PRN (10:35)
[2019-07-26] MEDS ORDERED: ACETAMINOPHEN 325 MG TABLET (FP) PO PRN ×2 (10:35)
[2019-07-26] MEDS ORDERED: MAGNESIUM HYDROX 2400MG/30ML ORAL SUSPENSION 30 ML CUP PO PRN (10:35)
[2019-07-26] MEDS ORDERED: METHADONE HCL 10 MG TABLET (FOR DETOX USE ONLY) PO ONE (11:10)
[2019-07-26 20:20] LABS: HEMOGLOBIN 13.8 GM/dL (11.7-16.9); MCH 30.4 pg (25.7-33.7); MCHC 33.7 g/dl (32.0-35.9); MEAN CELL VOLUME 90.1 fl (80-96); PLATELET COUNT 304 K/MM3 (134-434); RBC 4.55 M/mm3 (4.00-5.60); RDW 13.9 % (11.9-15.9); WHITE BLOOD COUNT 9.8 K/mm3 (4.0-10.0)
[2019-07-26 20:29] LABS: ALBUMIN 3.7 g/dl (3.4-5.0); BILIRUBIN,TOTAL 0.6 mg/dL (0.2-1); BLOOD UREA NITROGEN 12.8 mg/dL (7-18); CALCIUM 9.1 mg/dL (8.5-10.1); CREATININE 1.1 mg/dL (0.55-1.3); POTASSIUM 3.9 mmol/L (3.5-5.1); TOT PROT 7.1 g/dl (6.4-8.2)
[2019-07-26] MEDS: THIAMINE HCL 100 MG TABLET (FP) PO SCH (22:42)
[2019-07-26] MEDS: MELATONIN 5 MG TABLETS PO PRN (22:42)
[2019-07-27] MEDS ORDERED: METHADONE HCL 10 MG TABLET (FOR DETOX USE ONLY) ONE (09:54)
[2019-07-27] MEDS ORDERED: METHADONE HCL 5 MG TABLET (FOR DETOX USE ONLY) ONE (09:54)
[2019-07-27] MEDS ORDERED: METHADONE (DETOX) 20 MG, METHADONE (DETOX) 5 MG PO ONE (10:00)
[2019-07-27] MEDS: PRENATAL VITAMINS W/ FOLIC ACID TABLET (FP) PO SCH (10:40)
--- NOTE | 2019-07-27 11:19 | PN ---
BHS COWS - Scale Resting Pulse: 0= [place] 80 or Below Sweatin= Chills/Flushing Restless Observation: 0= Sits Still Pupil Size: 1= Pupils >than Normal Bone or Joint Aches: 1= Mild Discomfort Runny Nose/ Eye Tearin= Nasal Congestion GI Upset > 30mins: 1= Stomach Cramp Tremor Observation of Outstretched Hands: 1= Tremor [place], Not Seen Yawning Observation: 0= None Anxiety or Irritability: 1=Feels Anxious/Irritable Goose Flesh Skin: 3=Piloerection COWS Score: 10 BHS Progress Note (SOAP) Subjective: 38 years old male admitted on 07/26/19 for opiate withdrawal sx management treating with methadone detox regiment feeling tired resting in bed prefers to resting in bed today limited conversation with staff Objective: 07/27/19 11:18 Vital Signs Temperature 96.9 F L 07/27/19 08:59 Pulse Rate 63 07/27/19 08:59 Respiratory Rate 18 07/27/19 08:59 Blood Pressure 110/71 07/27/19 08:59 O2 Sat by Pulse Oximetry (%) Laboratory Last Values WBC 9.8 K/mm3 (4.0-10.0) 07/26/19 10:40 RBC 4.55 M/mm3 (4.00-5.60) 07/26/19 10:40 Hgb 13.8 GM/dL (11.7-16.9) 07/26/19 10:40 Hct 41.0 % (35.4-49) 07/26/19 10:40 MCV 90.1 fl (80-96) 07/26/19 10:40 MCH 30.4 pg (25.7-33.7) 07/26/19 10:40 MCHC 33.7 g/dl (32.0-35.9) 07/26/19 10:40 RDW 13.9 % (11.9-15.9) 07/26/19 10:40 Plt Count 304 K/MM3 (134-434) 07/26/19 10:40 MPV 9.0 fl (7.5-11.1) 07/26/19 10:40 Sodium 138 mmol/L (136-145) 07/26/19 10:40 Potassium 3.9 mmol/L (3.5-5.1) 07/26/19 10:40 Chloride 106 mmol/L (98-107) 07/26/19 10:40 Carbon Dioxide 28 mmol/L (21-32) 07/26/19 10:40 Anion Gap 5 MMOL/L (8-16) L 07/26/19 10:40 BUN 12.8 mg/dL (7-18) 07/26/19 10:40 Creatinine 1.1 mg/dL (0.55-1.3) 07/26/19 10:40 Est GFR (CKD-EPI)AfAm 97.49 07/26/19 10:40 Est GFR (CKD-EPI)NonAf 84.12 07/26/19 10:40 Random Glucose 102 mg/dL (74-106) 07/26/19 10:40 Calcium 9.1 mg/dL (8.5-10.1) 07/26/19 10:40 Total Bilirubin 0.6 mg/dL (0.2-1) 07/26/19 10:40 AST 17 U/L (15-37) 07/26/19 10:40 ALT 19 U/L (13-61) 07/26/19 10:40 Alkaline Phosphatase 104 U/L (45-117) 07/26/19 10:40 Total Protein 7.1 g/dl (6.4-8.2) 07/26/19 10:40 Albumin 3.7 g/dl (3.4-5.0) 07/26/19 10:40 RPR Titer Nonreactive (NONREACTIVE) 07/26/19 10:40 HIV 1&2 Ag/Ab, 4th Gen Non reactive (Non Reactive) 07/26/19 10:40 lab noted Assessment: 07/27/19 11:18 opiate withdrawal Plan: methadone regiment
[2019-07-27] MEDS: hydrOXYzine PAMOATE 25 MG CAPSULE (FP) PO PRN (17:11)
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
[2019-07-27] MEDS: THIAMINE HCL 100 MG TABLET (FP) PO SCH (22:15)
[2019-07-27] MEDS: MELATONIN 5 MG TABLETS PO PRN (22:15)
[2019-07-28] MEDS ORDERED: METHADONE HCL 10 MG TABLET (FOR DETOX USE ONLY) PO ONE (10:00)
[2019-07-28] MEDS: PRENATAL VITAMINS W/ FOLIC ACID TABLET (FP) PO SCH (10:33)
[2019-07-28] MEDS: hydrOXYzine PAMOATE 25 MG CAPSULE (FP) PO PRN ×3 (10:33→22:13)
--- NOTE | 2019-07-28 10:47 | PN ---
[facility] COWS - Scale Resting Pulse: 0= [place] 80 or Below Sweatin= Chills/Flushing Restless Observation: 0= Sits Still Pupil Size: 1= Pupils >than Normal Bone or Joint Aches: 1= Mild Discomfort Runny Nose/ Eye Tearin= None GI Upset > 30mins: 1= Stomach Cramp Tremor Observation of Outstretched Hands: 1= Tremor [place], Not Seen Yawning Observation: 0= None Anxiety or Irritability: 2=Irritable/Anxious Goose Flesh Skin: 0=Smooth Skin COWS Score: 7 [facility] Progress Note (SOAP) Subjective: 38 years old male admitted on 07/26/19 for opiate withdrawal sx management treating with methadone detox regiment feeling ok today discuss medication assisted treatment program and picking up narcan from pharmacy Objective: 07/28/19 10:48 Vital Signs Temperature 98.4 F 07/28/19 09:15 Pulse Rate 63 07/28/19 09:15 Respiratory Rate 18 07/28/19 09:15 Blood Pressure 121/81 07/28/19 09:15 O2 Sat by Pulse Oximetry (%) Laboratory Last Values WBC 9.8 K/mm3 (4.0-10.0) 07/26/19 10:40 RBC 4.55 M/mm3 (4.00-5.60) 07/26/19 10:40 Hgb 13.8 GM/dL (11.7-16.9) 07/26/19 10:40 Hct 41.0 % (35.4-49) 07/26/19 10:40 MCV 90.1 fl (80-96) 07/26/19 10:40 MCH 30.4 pg (25.7-33.7) 07/26/19 10:40 MCHC 33.7 g/dl (32.0-35.9) 07/26/19 10:40 RDW 13.9 % (11.9-15.9) 07/26/19 10:40 Plt Count 304 K/MM3 (134-434) 07/26/19 10:40 MPV 9.0 fl (7.5-11.1) 07/26/19 10:40 Sodium 138 mmol/L (136-145) 07/26/19 10:40 Potassium 3.9 mmol/L (3.5-5.1) 07/26/19 10:40 Chloride 106 mmol/L (98-107) 07/26/19 10:40 Carbon Dioxide 28 mmol/L (21-32) 07/26/19 10:40 Anion Gap 5 MMOL/L (8-16) L 07/26/19 10:40 BUN 12.8 mg/dL (7-18) 07/26/19 10:40 Creatinine 1.1 mg/dL (0.55-1.3) 07/26/19 10:40 Est GFR (CKD-EPI)AfAm 97.49 07/26/19 10:40 Est GFR (CKD-EPI)NonAf 84.12 07/26/19 10:40 Random Glucose 102 mg/dL (74-106) 07/26/19 10:40 Calcium 9.1 mg/dL (8.5-10.1) 07/26/19 10:40 Total Bilirubin 0.6 mg/dL (0.2-1) 07/26/19 10:40 AST 17 U/L (15-37) 07/26/19 10:40 ALT 19 U/L (13-61) 07/26/19 10:40 Alkaline Phosphatase 104 U/L (45-117) 07/26/19 10:40 Total Protein 7.1 g/dl (6.4-8.2) 07/26/19 10:40 Albumin 3.7 g/dl (3.4-5.0) 07/26/19 10:40 RPR Titer Nonreactive (NONREACTIVE) 07/26/19 10:40 HIV 1&2 Ag/Ab, 4th Gen Non reactive (Non Reactive) 07/26/19 10:40 lab noted Assessment: 07/28/19 10:48 opiate withdrawal Plan: methadone regiment
[2019-07-28] MEDS ORDERED: TRIMETHOBENZAMIDE HCL 200MG/2ML INJ IM ONE (13:33)
[2019-07-28] MEDS: MELATONIN 5 MG TABLETS PO PRN (22:13)
[2019-07-28] MEDS: METHOCARBAMOL 500 MG TABLET PO PRN (22:13)
[2019-07-28] MEDS: THIAMINE HCL 100 MG TABLET (FP) PO SCH (22:13)
[2019-07-29] MEDS ORDERED: METHADONE HCL 5 MG TABLET (FOR DETOX USE ONLY) ONE (09:15)
[2019-07-29] MEDS ORDERED: METHADONE HCL 10 MG TABLET (FOR DETOX USE ONLY) ONE (09:15)
[2019-07-29] MEDS ORDERED: METHADONE (DETOX) 10 MG, METHADONE (DETOX) 5 MG PO ONE (10:00)
[2019-07-29] MEDS: hydrOXYzine PAMOATE 25 MG CAPSULE (FP) PO PRN ×2 (10:12→16:01)
[2019-07-29] MEDS: PRENATAL VITAMINS W/ FOLIC ACID TABLET (FP) PO SCH (10:13)
--- NOTE | 2019-07-29 10:58 | PN ---
[facility] COWS - Scale Resting Pulse: 0= [place] 80 or Below Sweatin=Flushed/Facial Moisture Restless Observation: 1= Difficult to Sit Still Pupil Size: 0= Normal to Room Light Bone or Joint Aches: 1= Mild Discomfort Runny Nose/ Eye Tearin= None GI Upset > 30mins: 0= None Tremor Observation of Outstretched Hands: 0= None Yawning Observation: 0= None Anxiety or Irritability: 1=Feels Anxious/Irritable Goose Flesh Skin: 0=Smooth Skin COWS Score: 5 [facility] Progress Note (SOAP) Subjective: Feeling mildly anxious, sweaty, restless, bone aches Objective: 07/29/19 10:57 Laboratory Last Values WBC 9.8 K/mm3 (4.0-10.0) 07/26/19 10:40 RBC 4.55 M/mm3 (4.00-5.60) 07/26/19 10:40 Hgb 13.8 GM/dL (11.7-16.9) 07/26/19 10:40 Hct 41.0 % (35.4-49) 07/26/19 10:40 MCV 90.1 fl (80-96) 07/26/19 10:40 MCH 30.4 pg (25.7-33.7) 07/26/19 10:40 MCHC 33.7 g/dl (32.0-35.9) 07/26/19 10:40 RDW 13.9 % (11.9-15.9) 07/26/19 10:40 Plt Count 304 K/MM3 (134-434) 07/26/19 10:40 MPV 9.0 fl (7.5-11.1) 07/26/19 10:40 Sodium 138 mmol/L (136-145) 07/26/19 10:40 Potassium 3.9 mmol/L (3.5-5.1) 07/26/19 10:40 Chloride 106 mmol/L (98-107) 07/26/19 10:40 Carbon Dioxide 28 mmol/L (21-32) 07/26/19 10:40 Anion Gap 5 MMOL/L (8-16) L 07/26/19 10:40 BUN 12.8 mg/dL (7-18) 07/26/19 10:40 Creatinine 1.1 mg/dL (0.55-1.3) 07/26/19 10:40 Est GFR (CKD-EPI)AfAm 97.49 07/26/19 10:40 Est GFR (CKD-EPI)NonAf 84.12 07/26/19 10:40 Random Glucose 102 mg/dL (74-106) 07/26/19 10:40 Calcium 9.1 mg/dL (8.5-10.1) 07/26/19 10:40 Total Bilirubin 0.6 mg/dL (0.2-1) 07/26/19 10:40 AST 17 U/L (15-37) 07/26/19 10:40 ALT 19 U/L (13-61) 07/26/19 10:40 Alkaline Phosphatase 104 U/L (45-117) 07/26/19 10:40 Total Protein 7.1 g/dl (6.4-8.2) 07/26/19 10:40 Albumin 3.7 g/dl (3.4-5.0) 07/26/19 10:40 RPR Titer Nonreactive (NONREACTIVE) 07/26/19 10:40 HIV 1&2 Ag/Ab, 4th Gen Non reactive (Non Reactive) 07/26/19 10:40 Vital Signs Temperature 97.8 F 07/29/19 09:27 Pulse Rate 59 L 07/29/19 09:27 Respiratory Rate 16 07/29/19 09:27 Blood Pressure 109/73 07/29/19 09:27 O2 Sat by Pulse Oximetry (%) PE Gnl: WDWN, in no distress MS: awake, alert, nl mentation Motor: no gross asymmetry in limb motion Assessment: 07/29/19 10:58 1. Opioid use disorder Plan: 1. continue methadone withdrawal protocol
--- NOTE | 2019-07-29 11:59 | PN ---
[facility] Progress Note Note: Psychiatry Attending's note : Approached by patient. Complaint : insomnia. Mr Mojica is requesting seroquel. Side effects/benefits discussed with patient. Seroquel 50 mg po bid. Ordered. Consent (verbal) given to
[2019-07-29] MEDS: METHOCARBAMOL 500 MG TABLET PO PRN (14:04)
[2019-07-29 14:36] VITALS: PULSE 67
--- NOTE | 2019-07-29 15:00 | PN ---
[facility] Progress Note Note: Pt had CXR 10/02: no acute disease Order for CXR this admission cancelled
--- NOTE | 2019-07-29 17:51 | PN ---
[facility] Progress Note Note: pt insists on leaving AMA , states " this doesn't work for me " reports plans to return to [facility] tomorrow morning, reports prior attendance w/ MDD 55 mg , left upon incarceration . Vital Signs - 24 hr 07/28/19 07/29/19 07/29/19 20:11 00:30 03:30 Temperature 98.8 F Pulse Rate 61 Respiratory 18 18 14 Rate Blood Pressure 124/83 07/29/19 07/29/19 07/29/19 06:06 06:30 09:27 Temperature 96.6 F L 97.8 F Pulse Rate 52 L 59 L Respiratory 18 18 16 Rate Blood Pressure 103/68 109/73 07/29/19 13:06 Temperature 97.9 F Pulse Rate 67 Respiratory 17 Rate Blood Pressure 131/73 D/w pt at length risks of leaving AMA , including overdose and , reports " I ' m good , I am not going to use " , states he has Narcan kit at home and knows how to use it , reports he lives w/ his family who will pick him up from the facility .
[2019-07-29 18:07] VITALS: BP 121/77; TEMP 99.4
[2019-07-29] MEDS ORDERED: QUEtiapine FUMARATE 50 MG TABLET PO SCH (22:00)
[2019-07-30] MEDS ORDERED: METHADONE HCL 10 MG TABLET (FOR DETOX USE ONLY) PO ONE (10:00)
[2019-07-31] MEDS ORDERED: METHADONE HCL 5 MG TABLET (FOR DETOX USE ONLY) PO ONE (06:00)
== END 2019-07-29 18:46 | disposition left against medical advice (07) | DRG 770 ==
LOC: YASAS 09:42 → Y3N 10:52
PROVIDERS: ADMIT Allergy & Immunology; ATTEND Allergy & Immunology
PROC: HZ2ZZZZ Detoxification Services for Substance Abuse Treatment (ICD-10-PCS; principal; 2019-07-26)
DX: F11.23 Opioid dependence with withdrawal (principal); F14.20 Cocaine dependence, uncomplicated; F13.20 Sedative, hypnotic or anxiolytic dependence, uncomplicated; F16.20 Hallucinogen dependence, uncomplicated; F12.20 Cannabis dependence, uncomplicated; F32.9 Major depressive disorder, single episode, unspecified; F41.9 Anxiety disorder, unspecified; M19.90 Unspecified osteoarthritis, unspecified site; G47.00 Insomnia, unspecified; R76.11 Nonspecific reaction to tuberculin skin test without active tuberculosis; Z87.891 Personal history of nicotine dependence
CPT/HCPCS: 36415; 80053; 85027; 86593; 87389

== ENCOUNTER 2020-12-28 22:41 | Emergency (ER) | payer OTHER ==
[2020-12-28 22:47] VITALS: BMI 186.3
[2020-12-29] MEDS ORDERED: ACETAMINOPHEN 1000 MG/100 ML VIAL (NON FORMULARY) IVPB ONE (00:04)
[2020-12-29] MEDS ORDERED: ACETAMINOPHEN INJECTION 100 ML IVPB ONE (00:23)
[2020-12-29] MEDS ORDERED: SODIUM CHLORIDE 0.9% 500 ML INFUS.BAG IV ONE (00:23)
[2020-12-29 00:50] LABS: BASO % 0.6 % (0-2.0); EOS % 0.3 % (0-4.5); HEMATOCRIT 36.5 % (35.4-49); HEMOGLOBIN 12.3 GM/dL (11.7-16.9); LYMPH % 7.3 % (8-40); MCH 29.6 pg (25.7-33.7); MCHC 33.7 g/dl (32.0-35.9); MONO % 8.4 % (3.8-10.2); NEUT % 83.4 % (42.8-82.8); PLATELET COUNT 321 10^3/uL (134-434); RBC 4.15 M/mm3 (4.00-5.60); RDW 13.7 % (11.9-15.9); WHITE BLOOD COUNT 22.6 K/mm3 (4.0-10.0)
[2020-12-29 01:19] LABS: ALBUMIN 3.3 g/dl (3.4-5.0); BLOOD UREA NITROGEN 11.7 mg/dL (7-18); CALCIUM 8.8 mg/dL (8.5-10.1)
[2020-12-29 01:22] LABS: CREATININE 1.1 mg/dL (0.55-1.3)
[2020-12-29 01:24] LABS: BILIRUBIN,TOTAL 0.2 mg/dL (0.2-1)
[2020-12-29] MEDS ORDERED: AMPICILLIN NA/SULBACTAM NA 1.5 GM in SODIUM CHLORIDE 100 ML IVPB ONE (01:36)
[2020-12-29] MEDS ORDERED: CLINDAMYCIN 600MG PREMIX IVPB 600 MG/50 ML BAG IVPB ONE ×2 (01:36→01:42)
[2020-12-29] MEDS ORDERED: POTASSIUM CHLORIDE TABS 20 MEQ TABLET.ER (FP) PO ONE (02:57)
[2020-12-29] MEDS ORDERED: MAGNESIUM SULF 50% (8.12 MEQ/2 ML-1 GM VIAL) IVPB ONE (02:57)
[2020-12-29 04:04] LABS: ANISOCYTOSIS 0; HELMET CELLS 0; HOWELL-JOLLY BODIES 0; MACROCYTOSIS 0; OVALOCYTE 0; PLATELET ESTIMATE NORMAL; ROULEAU 0; SICKELED CELLS 0; TARGET CELLS 0; TEAR DROP CELLS 0; TOXIC GRANULATION 0
[2020-12-29 06:01] LABS: MAGNESIUM 2.1 mg/dL (1.8-2.4)
[2020-12-29 23:13] VITALS: BP 127/90; PULSE 84; TEMP 98
== END 2020-12-29 03:25 | disposition home or self-care (01) ==
LOC: JER 22:41
PROC: 3E0333Z Introduction of Anti-inflammatory into Peripheral Vein, Percutaneous Approach (ICD-10-PCS; principal; 2020-12-28)
PROC: 3E03329 Introduction of Other Anti-infective into Peripheral Vein, Percutaneous Approach (ICD-10-PCS; 2020-12-28)
PROC: 3E03329 Introduction of Other Anti-infective into Peripheral Vein, Percutaneous Approach (ICD-10-PCS; 2020-12-28)
DX: J02.9 Acute pharyngitis, unspecified (principal)
CPT/HCPCS: 36415; 70490-TC; 80053; 83735; 85025; 99284-25; J0131

== ENCOUNTER 2020-12-29 19:30 | Emergency (ER) | payer OTHER ==
[2020-12-29 19:40] VITALS: BP 135/81; PULSE 90; BMI 29.7
[2020-12-29 19:41] VITALS: TEMP 98.6
[2020-12-29] MEDS ORDERED: CLINDAMYCIN 600MG PREMIX IVPB 600 MG/50 ML BAG IVPB ONE ×2 (20:33→20:41)
[2020-12-29 21:03] LABS: BASO % 0.4 % (0-2.0); EOS % 0.2 % (0-4.5); HEMATOCRIT 35.8 % (35.4-49); HEMOGLOBIN 12.1 GM/dL (11.7-16.9); LYMPH % 11.1 % (8-40); MCH 29.6 pg (25.7-33.7); MCHC 33.7 g/dl (32.0-35.9); MEAN CELL VOLUME 87.7 fl (80-96); MONO % 7.1 % (3.8-10.2); NEUT % 81.2 % (42.8-82.8); PLATELET COUNT 320 10^3/uL (134-434); RBC 4.09 M/mm3 (4.00-5.60); WHITE BLOOD COUNT 18.1 K/mm3 (4.0-10.0)
[2020-12-29 21:26] LABS: ALBUMIN 2.8 g/dl (3.4-5.0); BLOOD UREA NITROGEN 10.2 mg/dL (7-18); CALCIUM 8.4 mg/dL (8.5-10.1)
[2020-12-29 21:30] LABS: CREATININE 0.8 mg/dL (0.55-1.3)
[2020-12-29 21:31] LABS: BILIRUBIN,TOTAL 0.4 mg/dL (0.2-1); TOT PROT 6.4 g/dl (6.4-8.2)
[2020-12-29 22:51] LABS: ANISOCYTOSIS 2+; MACROCYTOSIS 0; PLATELET ESTIMATE NORMAL
== END 2020-12-29 22:34 | disposition short-term general hospital (02) ==
LOC: JER 19:30
DX: J39.0 Retropharyngeal and parapharyngeal abscess (principal); J02.9 Acute pharyngitis, unspecified; R13.10 Dysphagia, unspecified; Z11.52 Encounter for screening for COVID-19
CPT/HCPCS: 36415; 80053; 85025; 99285-25; C9803; U0003; U0005